=== PATIENT | female | born 1980 | race Caucasian/White ===

== ENCOUNTER 2018-06-28 09:13 | Outpatient (CLI) | payer MEDICAID, SELFPAY ==
[2018-06-28 13:00] LABS: Anion Gap 9.6 mmol/L (3-11); CO2 26.4 mmol/L (21.0-32.0); Chloride 105 mmol/L (98-107); Potassium 3.7 mmol/L (3.5-5.1); Sodium 141 mmol/L (136-145)
[2018-06-28 13:03] LABS: Hemoglobin A1C 5.9 % (4.5-6.2)
== END 2018-06-28 09:14 ==
PROVIDERS: PCP Family Medicine; Visit Provider Family Medicine
DX: I10 Essential (primary) hypertension (principal); E11.9 Type 2 diabetes mellitus without complications
CPT/HCPCS: 36415; 80051; 83036

== ENCOUNTER 2019-03-09 08:37 | Outpatient (CLI) | payer MEDICAID, SELFPAY ==
[2019-03-09 11:15] LABS: Hemoglobin A1C 6.2 % (4.5-6.2)
[2019-03-10 13:27] LABS: Measles IgG Antibody Negative
== END 2019-03-09 08:57 ==
PROVIDERS: PCP Family Medicine; Visit Provider Family Medicine
DX: E11.9 Type 2 diabetes mellitus without complications (principal); Z20.828 Contact with and (suspected) exposure to other viral communicable diseases
CPT/HCPCS: 36415; 83036; 86765

== ENCOUNTER 2019-03-09 08:56 | Outpatient (REF) | payer MEDICAID, SELFPAY | END 2019-03-09 09:16 | LOC: LBN 08:56 | PROVIDERS: PCP Family Medicine; Visit Provider Family Medicine | DX: S81.802A Unspecified open wound, left lower leg, initial encounter (principal); E11.9 Type 2 diabetes mellitus without complications; Z20.828 Contact with and (suspected) exposure to other viral communicable diseases | CPT/HCPCS: 36415; 83036; 86765; 87070; 87205 ==

== ENCOUNTER 2019-03-26 07:37 | Emergency (ER) | payer MEDICAID, SELFPAY ==
[2019-03-26 07:41] VITALS: BP 144/87; PULSE 116; RESP 26; TEMP 37.3; O2SAT 99
--- NOTE | 2019-03-26 08:19 | DI.CT_ITS ---
SYMPTOMS/DIAGNOSIS: ANTERIOR THROAT PAIN, WORSE ON RIGHT; ALTERED VOICE CT OF THE NECK: A post contrast exam was performed. The visualized portions of the lung apices appear clear. The thyroid, parotid and submandibular glands appear normal. The epiglottis is not enlarged. There is enlargement of the adenoids, as well as lingual and palatine tonsils. No abscess is identified. There is no prevertebral soft tissue swelling. There does appear to be some narrowing of the oropharynx secondary to the adenoid swelling. The spine is unremarkable. IMPRESSION: Tonsillitis and adenoiditis with narrowing of the oropharynx. No drainable abscess.
--- NOTE | 2019-03-26 08:26 | ED.GENADUL_ITS ---
Discharge Plan Disposition Patient Disposition: HOME Condition: Stable Discharge Details Chief Complaint: Sorethroat Clinical Impression: Sore throat, Generalized body aches Primary Care Provider: Isidro Weinstein ED Provider: Kiersten Haynes Home Meds and New Rx's Prescriptions: Continued albuterol sulfate [ProAir HFA] 90 mcg/actuation HFA aerosol inhaler 1 puff Inhalation Q4H PRN Qty: 1 RF: 3 dextroamphetamine-amphetamine [Adderall XR] 20 mg capsule,extended release 24hr 20 mg PO DAILY MDD 20 mg Qty: 30 RF: 0 loratadine 10 mg tablet 10 mg PO DAILY PRN (Reason: allergy symptoms) Qty: 90 RF: 3 PNV cmb#95-ferrous fumarate-FA [] 1 EACH tablet 1 ea PO DAILY RF: 0 wedge pillow 1 misc UD DAILY Qty: 1 RF: 0 levothyroxine 100 MCG tablet 100 mcg PO DAILY Qty: 90 RF: 4 metformin 500 mg tablet 500 mg PO BID Qty: 180 RF: 3 Discharge Instructions Instructions: Pharyngitis (ED) Additional Instructions: Please return immediately to the emergency department if you develop any new or worsening symptoms or if you become otherwise concerned. It is extremely important that you make an appointment to be seen in follow-up for this visit as soon as possible by your primary care doctor. Referrals: Isidro Weinstein [Primary Care Provider] - Medical Decision Making Jaki Cardoso is a 38 y/o woman with history of obesity, borderline diabetes, asthma who presented to the emergency department with sore throat, painful swallowing, change in voice since yesterday. On exam patient is nontoxic appearing. She has a hoarse voice. Exam of the oropharynx is normal, no tonsillar or posterior pharynx erythema, no tonsillar edema. Difficult examination of the neck secondary to body habitus, right anterior neck tender to palpation. No tongue elevation. Handling secretions without issue. Rapid strep negative per nursing. Concern for bacterial vs viral pharyngitis, possible abscess given difficulty swallowing liquids change in voice, possible metabolic/lyte derangement. Exam/history is not consistent with sepsis, meningitis. Plan for CT neck, screening labs, IV fluid hydration. Will monitor and reassess. CT neck shows enlarged adenoids, no abscess, no epiglottitis per radiology preliminary read. Patient reports symptoms improved. Has been drinking fluids without issue. Heart rate now 100 upon reassessment. I had a lengthy discussion with the patient and her regarding return to emergency department precautions, importance of outpatient follow-up with her PCP, and home care. Patient verbalized understanding of the plan and was amenable. Patient was discharged to home with clear plan for outpatient follow-up. All questions were answered. Medical Records Medical records reviewed: Yes I reviewed the patient's medical records. Lab Data Lab results reviewed: Yes I reviewed the patient's lab results. 03/26/19 07:53 Pharynx Streptococcus Screen ([facility]) - Pending Laboratory Tests Range/Units 03/26/19 03/26/19 03/26/19 08:35 08:35 09:45 WBC (4.4-10.8) k/cumm 13.81 H RBC (4.00-5.20) m/cumm 4.44 Hgb (12.0-15.5) g/dL 11.4 L Hct (36.0-46.0) % 36.3 MCV (80-95) fL 81.8 MCH (27.0-33.0) pg 25.7 L MCHC (32.0-36.0) g/dL 31.4 L RDW (11.7-14.6) % 15.1 H Plt Count (130-400) x1000/uL 302 MPV (8.0-11.0) fL 9.9 Immature Gran % 0.4 Neutrophils % 82.9 Lymphocytes % 10.1 Monocytes % 5.7 Eosinophils % 0.8 Basophils % 0.1 Absolute Neutrophils (1.2-6.7) k/cumm 11.45 H Absolute Lymphocytes (1.2-3.4) k/cumm 1.39 Absolute Monocytes (0.11-0.7) k/cumm 0.79 H Absolute Eosinophils (0.0-0.7) k/cumm 0.11 Absolute Basophils (0.0-0.2) k/cumm 0.01 Sodium (136-145) mmol/L 134 L Potassium (3.5-5.1) mmol/L 4.1 Chloride (98-107) mmol/L 97 L Carbon Dioxide (21.0-32.0) mmol/L 27.8 Anion Gap (3-11) mmol/L 9.2 BUN (7-18) mg/dL 10 Creatinine (0.55-1.02) mg/dL 0.68 Estimated GFR/1.73 m2 (mL/min/1.73m2) >= 60.00 Glucose (70-100) mg/dL 127 H Calcium (8.5-10.1) mg/dL 8.8 Urine Color (Yellow) Yellow Urine Clarity Clear Urine pH (5-8) 5.5 Ur Specific [place] (1.005-1.025) 1.020 Urine Protein (Negative) mg/dL Negative Urine Ketones (Negative) mg/dL Negative Urine Blood (Negative) Negative Urine Nitrite (Negative) Negative Urine Bilirubin (Negative) Negative Urine Urobilinogen (Up TO 0.2) EU/dL 0.2 Ur Leukocyte Esterase (Negative) Trace H Urine RBC (0-2) Negative Urine WBC (0-5) HPF 0-2 Ur Epithelial Cells (Negative) HPF Negative Urine Crystals (Negative) HPF Negative Urine Bacteria (Negative) HPF Negative Urine Casts (Negative) LPF Negative Urine Mucus (Negative) Negative Urine Other (Negative) Negative Ur Culture Indicated? No Urine Glucose (Negative) mg/dL Negative HPI General Mode of arrival: ambulatory . Date/Time Provider Initiated Documentation: 03/26/19 08:01 . Limitations to Documentation: no limitations . Information obtained by: patient, family, RN notes reviewed and old records reviewed . HPI Narrative: Jaki Cardoso is a 38 y/o woman with history of obesity, diabetes in the past on metformin though currently on no medications, asthma presenting to the emergency department with sore throat. Patient reports that yesterday she noticed that the front right side of her throat is painful. She felt that she had fevers throughout the night with unusual episodes of sweating, and also noticed generalized body aches throughout. Patient reports that she has had very little to drink since onset of throat pain yesterday, and has had nothing to eat because of the pain. She notes that her voice has changed since onset of throat pain. Patient also reports headache and area of her frontal sinuses bilaterally (no sudden onset, not the worst headache of her life) and nausea. She denies any other pain, denies vomiting, diarrhea, dysuria, shortness of breath, cough. Was previously in her usual state of health. Patient reports that she has not taken any medication at home for her symptoms. Related Data Home Medications Medication Instructions Recorded Confirmed PNV cmb#95-ferrous fumarate-FA 1 ea PO DAILY 03/05/15 03/09/19 [] levothyroxine 100 mcg PO DAILY #90 tab-cap 05/17/18 03/26/19 albuterol sulfate HFA 90 1 puff INHALATION Q4H PRN #1 09/05/18 03/26/19 mcg/actuation aerosol inhaler inhaler metformin 500 mg tablet 500 mg PO BID #180 tab-cap 12/12/18 03/26/19 dextroamphetamine-amphetamine ER 20 mg PO DAILY #30 cap MDD 20 mg 03/09/19 03/26/19 20 mg 24hr capsule,extend release loratadine 10 mg tablet 10 mg PO DAILY PRN #90 tab-cap 03/09/19 03/26/19 Previous Rx's Medication Instructions Recorded levothyroxine 100 mcg PO DAILY #90 tab-cap 05/17/18 albuterol sulfate HFA 90 1 puff INHALATION Q4H PRN #1 09/05/18 mcg/actuation aerosol inhaler inhaler metformin 500 mg tablet 500 mg PO BID #180 tab-cap 12/12/18 dextroamphetamine-amphetamine ER 20 mg PO DAILY #30 cap MDD 20 mg 03/09/19 20 mg 24hr capsule,extend release loratadine 10 mg tablet 10 mg PO DAILY PRN #90 tab-cap 03/09/19 Allergies Allergy/AdvReac Type Severity Reaction Status Date / Time coconut Allergy Severe THROAT Unverified 03/09/19 08:02 CLOSES latex Allergy Intermediate Skin Rash Unverified 03/09/19 08:02 General Stated Complaint: Sorethroat MARRY: 4 Review of Systems Review of Systems Constitutional: Reports subjective fevers Eyes: denies eye pain ENT: denies facial pain, dental pain, reports sore throat, pain and difficulty swallowing, voice change Cardiovascular: denies chest pain Respiratory: denies SOB, cough GI: denies abdominal pain, vomiting, diarrhea : denies flank pain MSK: denies back pain, neck pain, arthralgias, reports generalized myalgias Skin: denies rash Neuro: Reports mild headaches in frontal sinus area, denies weakness PFS Medical History Allergic asthma Morbid obesity Family History Father Diabetes Mental disorder Neoplasm Mother Diabetes Mental disorder Brother Mental disorder Brother Mental disorder Grandfather Dementia Heart disease Grandfather Neoplasm Grandmother Heart disease Grandmother CHF (congestive heart failure) Asthma Daughter No problems noted. nephew Mental disorder Social History Smoking/Tobacco Use Status: Never Alcohol Intake: never Drug use: Never Substance use type: does not use Household members: other Details: 3 Pets and animals: Yes Pets and animals: cat(s) What type of physical activity do you participate in: none Mariam/Evangelical: [employer] mariam needs: No Seatbelt use: always Do you feel safe at home: Yes Do you feel safe in your relationship?: Yes Exam Narrative Exam Narrative: Constitutional: well and [id number], pleasant, conversing normally but with hoarse voice HENT: head atraumatic/normocephalic/normal inspection, mucous membranes moist, normal posterior pharynx without edema or erythema, uvula midline, no tongue elevation Eyes: conjunctiva normal, sclera normal, pupils 3mm b/l Neck: no stridor, normal painless ROM, supple, trachea midline, exam somewhat limited secondary to body habitus, tender anterior right neck Chest: normal inspection Resp: normal work of breathing, LCTAB Cardio: normal rate, normal rhythm, no murmur appreciated Back: normal inspection, no rash Skin: warm, dry, normal color, no rash Neuro: alert, not altered, grossly non-focal, normal tone, normal gait Ext: no edema Psych: normal mood, normal affect, normal behavior Course Vital Signs Temperature 37.3 C 03/26/19 07:41 Pulse 116 H 03/26/19 07:41 Respiratory Rate 26 H 03/26/19 07:41 Blood Pressure 144/87 H 03/26/19 07:41 Pulse Oximetry 99 03/26/19 07:41 Temperature 37.3 C 03/26/19 07:41 Temperature Source Tympanic 03/26/19 07:41 Pulse 116 H 03/26/19 07:41 Respiratory Rate 26 H 03/26/19 07:41 Blood Pressure 144/87 H 03/26/19 07:41 Pulse Oximetry 99 03/26/19 07:41 Oxygen Delivery Method Room Air 03/26/19 07:41 Oxygen Flow Rate 0 03/26/19 07:41 Pain Level 9 03/26/19 07:41 Lab/Test Results Lab/Test Results: 03/26/19 08:00 Pharynx Streptococcus Screen ([facility]) - Pending
[2019-03-26] MEDS: Ibuprofen 600 MG TAB PO (08:29)
[2019-03-26] MEDS: Normal Saline 1,000 ML 1000 ML IV (08:39)
[2019-03-26 08:50] LABS: Abs Immature Grans 0.06 k/cumm (0.0-0.09); Absolute Eosinophil Count 0.11 k/cumm (0.0-0.7); Absolute Lymphocyte Count 1.39 k/cumm (1.2-3.4); Absolute Monocyte Count 0.79 k/cumm (0.11-0.7); Basophils % 0.1; Eosinophils % 0.8; HCT 36.3 % (36.0-46.0); HGB 11.4 g/dL (12.0-15.5); Immature Grans % 0.4; Lymphocytes % 10.1; Mean Corp. HGB Concentration 31.4 g/dL (32.0-36.0); Mean Corpuscular Hemoglobin 25.7 pg (27.0-33.0); Mean Corpuscular Volume 81.8 fL (80-95); Mean Platelet Volume 9.9 fL (8.0-11.0); Monocytes % 5.7; Neutrophils % 82.9; Platelet Count 302 x1000/uL (130-400); RBC 4.44 m/cumm (4.00-5.20); RBC Distribution Width 15.1 % (11.7-14.6); White Blood Cell Count 13.81 k/cumm (4.4-10.8)
[2019-03-26 08:51] LABS: Absolute Basophil Count 0.01 k/cumm (0.0-0.2); Absolute Neutrophil Count 11.45 k/cumm (1.2-6.7)
[2019-03-26 08:54] LABS: Anion Gap 9.2 mmol/L (3-11); BUN 10 mg/dL (7-18); CO2 27.8 mmol/L (21.0-32.0); CREATININE 0.68 mg/dL (0.55-1.02); Calcium 8.8 mg/dL (8.5-10.1); Chloride 97 mmol/L (98-107); Glucose 127 mg/dL (70-100); Potassium 4.1 mmol/L (3.5-5.1); Sodium 134 mmol/L (136-145)
[2019-03-26] MEDS: Omnipaque 350 MG/ML 100 ML BTL IJ (10:21)
[2019-03-26 10:43] LABS: Bilirubin Negative (Negative); Blood Negative (Negative); Clarity Clear; Glucose Negative (Negative); Ketones Negative (Negative); Leukocyte Esterase Trace (Negative); Nitrite Negative (Negative); Urobilinogen 0.2 EU/dL (Up TO 0.2); pH 5.5 (5-8)
[2019-03-26 10:53] LABS: Bacteria Negative HPF (Negative); C & S Indicated? No; Casts Negative LPF (Negative); Crystals Negative HPF (Negative); Epithelial Cells Negative HPF (Negative); Mucus Negative (Negative); Other Cells Negative (Negative); RBC Negative (0-2); WBC 0-2 HPF (0-5)
[2019-03-26 12:00] VITALS: PULSE 102; RESP 18; TEMP 37; O2SAT 98
--- NOTE | 2019-03-27 17:33 | DI.VRAD_ITS ---
EXAM: CT Neck With Contrast EXAM DATE/TIME: 03/26/2019 10:18 AM CLINICAL HISTORY: 38 years old, female; Throat pain TECHNIQUE: Imaging protocol: Axial computed tomography images of the neck with intravenous contrast. Coronal and sagittal reformatted images were created and reviewed. Contrast material: [id number]; Contrast volume: 100 ml; Contrast route: IV; COMPARISON: No relevant prior studies available. FINDINGS: Sinuses: Mild mucoperiosteal thickening noted in the sphenoid sinus. Nasopharynx: The adenoidal tissues are prominent. Oropharynx: The tonsillar tissues are prominent for age. There is lymphoid hyperplasia present at the tongue base. The oropharynx is compromised secondary to tonsillar and adenoidal enlargement. Hypopharynx: Normal. Larynx: Normal. Normal epiglottis. Retropharyngeal space: Normal. Submandibular/Parotid glands: Normal. Glands are normal in size. Thyroid: Normal. No enlarged or calcified nodules. Lymph nodes: There is mild bilateral carotid space adenopathy. Trachea: Visualized trachea is unremarkable. Lungs: Soft tissue nodule right upper lobe 3 mm series 3 image 1. Vasculature: No acute findings. Bones/joints: Normal. No acute fracture. Soft tissues: Normal. No significant soft tissue swelling. IMPRESSION: Tonsillitis and adenoiditis. There is associated airway compromise of the oropharynx. COMMENT: Preliminary interpretation is based on receipt of 753 image(s). A final report will be issued subsequently. Dictated and Authenticated by: Caitlyn Maher MD. Ordering:SABINE Burch MD
== END 2019-03-26 12:25 | disposition home or self-care (01) ==
PROVIDERS: Emergency Provider Student in an Organized Health Care Education/Training Program; PCP Family Medicine
DX: J02.0 Streptococcal pharyngitis (principal); M79.10 Myalgia, unspecified site; R49.0 Dysphonia; E11.9 Type 2 diabetes mellitus without complications; J35.2 Hypertrophy of adenoids; E66.01 Morbid (severe) obesity due to excess calories; Z68.44 Body mass index [BMI] 60.0-69.9, adult
CPT/HCPCS: 36415; 70491; 80048; 81025; 87880; 96360; 99285; 81003; 81015; 85025; 87081; 99284; J3490

== ENCOUNTER 2019-05-21 13:05 | Emergency (ER) | payer MEDICAID, SELFPAY ==
[2019-05-21] VITALS (11 sets, daily range): BP systolic 124–143; BP diastolic 73–88; PULSE 83–102; RESP 16–29; TEMP 36.7; O2SAT 97–100
[2019-05-21] MEDS: Ketorolac 15 MG/ML VIAL IVP (13:21)
--- NOTE | 2019-05-21 13:21 | DI.CT_ITS ---
SYMPTOM/DIAGNOSIS: EPIGASTRIC AND RUQ PAIN, STERNAL PAIN CHEST, ABDOMEN AND PELVIC CT: CT scan of the chest, abdomen and pelvis was performed following the uneventful administration of intravenous contrast material. There are no priors for comparison. ABDOMEN AND PELVIS: The liver is enlarged measuring 25 cm. in length. There does appear to be diffuse decreased attenuation of the liver suggesting hepatic steatosis. No evidence of a hepatic mass is seen. The portal, superior mesenteric and splenic veins are patent. There are stones seen in the region of the neck of the gallbladder. There is no biliary ductal dilatation. There does appear to be mild increased infiltration around the gallbladder. The pancreas is unremarkable as are the spleen and adrenal glands. The kidneys show normal and symmetric enhancement. No evidence of a solid renal mass or obstruction. The urinary bladder is intact. The reproductive organs are unremarkable. The abdominal aorta is of normal caliber. No significant abdominal or pelvic adenopathy, ascites or pneumoperitoneum is present. The bowel shows no evidence of obstruction or inflammation. No findings to suggest an acute appendicitis are present. Mild degenerative changes are seen in the spine. IMPRESSION: Cholelithiasis with mild increased infiltration in the surrounding fat. Acute cholecystitis cannot be excluded. Ultrasound should be considered for further evaluation. CHEST: The thoracic aorta is of normal caliber. Incidental note is made of an aberrant right subclavian artery. Heart size is within normal limits. No significant pericardial effusion is sasha. No significant thoracic adenopathy is appreciated. There is soft tissue in the anterior mediastinum likely reflecting residual thymic tissue. No pleural effusion or pneumothorax is identified. No focal consolidating infiltrates are seen. The tracheobronchial tree is unremarkable. Moderate degenerative changes are seen in the spine. There is a bone island seen in the T 3 vertebral body. IMPRESSION: No acute pulmonary process.
--- NOTE | 2019-05-21 13:24 | ED.GENADUL_ITS ---
Discharge Plan Disposition Patient Disposition: HOME Condition: Good Discharge Details Chief Complaint: Abd Prob Clinical Impression: Acid reflux, Acute epigastric pain, Biliary colic Primary Care Provider: Isidro Weinstein ED Provider: Ridge Choudhary Home Meds and New Rx's Prescriptions: New omeprazole 40 mg capsule,delayed release(DR/EC) 40 mg PO DAILY Qty: 30 RF: 0 No Action albuterol sulfate [ProAir HFA] 90 mcg/actuation HFA aerosol inhaler 1 puff Inhalation Q4H PRN Qty: 1 RF: 3 loratadine 10 mg tablet 10 mg PO DAILY PRN (Reason: allergy symptoms) Qty: 90 RF: 3 penicillin V potassium 500 mg tablet 500 mg PO BID RF: 0 PNV cmb#95-ferrous fumarate-FA [] 1 EACH tablet 1 ea PO DAILY RF: 0 wedge pillow 1 misc UD DAILY Qty: 1 RF: 0 levothyroxine 100 MCG tablet 100 mcg PO DAILY Qty: 90 RF: 4 metformin 500 mg tablet 500 mg PO BID Qty: 180 RF: 3 dextroamphetamine-amphetamine [Adderall XR] 20 mg capsule,extended release 24hr 20 mg PO DAILY MDD 20 mg Qty: 30 RF: 0 Discharge Instructions Instructions: Biliary Colic (ED), Gastroesophageal Reflux Disease (ED) Additional Instructions: Your gallbladder does have some gallstones, and shows some signs of irritation, however upon review with the surgeon it is felt that no immediate surgery is indicated currently. I feel that your symptoms are most likely reflux related, however there is certainly a mild gallbladder component. Please avoid any spicy foods, greasy foods, tomato-based foods, or citrus foods. Avoid any dairy. Please take the medication as directed. Please follow-up immediately with the surgeon. Please contact their office tomorrow morning for this appointment. If you notice any worsening of your symptoms, or any new symptoms such as vomiting, diarrhea, fever, chills, shortness of breath, chest pain, numbness, weakness, or fainting , please return immediately to the emergency department for reevaluation. Please follow up with your primary care provider as soon as possible for reassessment and reevaluation. As always, it was a pleasure participating in your medical care today. Referrals: Elsy Bender MD [ [facility] STAFF PHYSICIAN] - Medical Decision Making This is a pleasant 58-year-old female with a past medical history of morbid obesity, obstructive sleep apnea, diabetes, who presents today for evaluation of epigastric pain. She states that this morning when she woke up she had epigastric pain, not worsened by the steak eggs and cheese that she ate. It radiates to the sternum but also in the upper abdomen. Notably reproducible on palpation of the epigastric region. She denies any recent alcohol intake. She does have nausea, but denies any vomiting. Exam demonstrates no other significant abnormalities. Differential includes pancreatitis, gallbladder etiology, or less likely pulmonary etiology. Cardiac work-up will be performed secondary to the patient's obesity diabetes. We will rehydrate, treat her pain reassess. 4:55 PM After Toradol and GI cocktail the patient has near complete resolution of her symptoms. She still does describe a mild achiness in the epigastric region, but no other significant pain. She is tolerating p.o. very well. Laboratory results demonstrate no white count, stable hemoglobin, no bandemia or severe left shift. Electrolytes are normal, renal function normal, EKG, and troponin are benign lipase is normal. CT scan results per virtual radiology have returned and demonstrate evidence of a mildly distended gallbladder, gallstones, very mild pericholecystic fluid. Repeat abdominal exam demonstrates no evidence of a Flowers sign, and a nonsurgical abdomen. With no evidence of white count, notable tolerance to p.o., and near complete resolution of her symptoms or GI cocktail I feel that severe acute cholecystitis is less likely. We did contact surgery, Dr. Bender discussed the case with her. Images were reviewed, patient clinical condition was reviewed, and labs were reviewed. At this time it is felt that since that her pain is resolved, she is tolerating p.o. well, has no white count or fever, demonstrates a nonsurgical abdomen at this time that no immediate surgery is indicated. Dr. Bender would like to see the patient on an outpatient basis this week. Discussed this with the patient, we will start her on omeprazole for PPI inhibition. Recommended dietary precautions, the importance of close prompt follow-up. At this time I feel that the patient's symptoms are clinically consistent with reflux and mild gastritis, and not acute cholecystitis clinically requiring emergent surgery.. I have extensively reviewed the treatment plan and discharge instructions with the patient and their family. I have addressed all patient concerns at this time. The patient and family was made aware of what symptoms to monitor for that would warrant a return to the emergency department. Discussed the plan with the patient and family, they demonstrate verbal understanding and agreement with our assessment and plan at this time. EKG 13: 14 Rate 83, intervals normal, sinus rhythm, no significant ST elevations or depressions, there is an inverted T wave in lead III. No other acute changes. No previous EKG for comparison. EXAM: CT Chest With Contrast EXAM DATE/TIME: 05/21/2019 1:23 PM CLINICAL HISTORY: 38 years old, female; Abdominal pain; Localized; Right upper quadrant (ruq); Sternal or substernal pain; Patient HX: Epigastric pain, ruq pain, sternal pain TECHNIQUE: Imaging protocol: Axial computed tomography images of the chest with intravenous contrast. Coronal and sagittal reformatted images were created and reviewed. COMPARISON: US PELVIS TRANSVAG 07/15/2017 3:32 PM FINDINGS: Lungs: Unremarkable. No consolidation. No masses. Pleural space: Unremarkable. No pneumothorax. No pleural effusion. Heart: Unremarkable. No cardiomegaly. No pericardial effusion. Aorta: Unremarkable. No aortic aneurysm. Lymph nodes: Unremarkable. No enlarged lymph nodes. Bones/joints: Unremarkable. No acute fracture. Soft tissues: Unremarkable. IMPRESSION: No acute findings. EXAM: CT Abdomen and Pelvis With Contrast EXAM DATE/TIME: 05/21/2019 1:23 PM CLINICAL HISTORY: 38 years old, female; Abdominal pain; Localized; Right upper quadrant (ruq); Sternal or substernal pain; Patient HX: Epigastric pain, ruq pain, sternal pain TECHNIQUE: Imaging protocol: Axial computed tomography images of the abdomen and pelvis with intravenous contrast. Coronal and sagittal reformatted images were created and reviewed. COMPARISON: US PELVIS TRANSVAG 07/15/2017 3:32 PM FINDINGS: Liver: Hepatomegaly 25 cm Gallbladder and bile ducts: Multiple gallstones in the distended gallbladder. There may be mild pericholecystic inflammatory changes. Pancreas: Normal. No ductal dilation. Spleen: Normal. No splenomegaly. Adrenals: Normal. No mass. Kidneys and ureters: Normal. No hydronephrosis. Stomach and bowel: Normal. No obstruction. No mucosal thickening. Appendix: No evidence of appendicitis. Intraperitoneal space: Normal. No free air. No significant fluid collection. Vasculature: Normal. No abdominal aortic aneurysm. Lymph nodes: Normal. No enlarged lymph nodes. Bladder: Unremarkable as visualized. Reproductive: Unremarkable as visualized. Bones/joints: No acute fracture. No dislocation. Soft tissues: Unremarkable. IMPRESSION: Multiple gallstones in the distended gallbladder. There may be mild pericholecystic inflammatory changes. Recommend further evaluation for acute cholecystitis Dictated and Authenticated by: Randi Chacon MD. Ordering:YULIYA Sabillon MD [facility] General Date/Time Provider Initiated Documentation: 05/21/19 13:08 . HPI Narrative: This is a 38-year-old female with a past medical history of obesity, uterine fibroids, diabetes, obstructive sleep apnea, who presents today for evaluation of epigastric pain. Patient states that this morning she woke up with this epigastric pain. She describes it as aching in nature. She has eaten steak, eggs, and cheese since then and this is not changed her pain. She has been constipated as of late but denies any acute change of bowel movements as of late. She denies any significant pleuritic chest pain. There is questionable radiation to her sternum, but she states that the majority is in the epigastric region. It is slightly worse when lying flat, but not improved by sitting upright. She denies any arm neck or shoulder pain. She denies any chest heaviness or tightness. She denies any previous cardiac history or family history of early cardiac disease. Denies PE risk factors such as recent long car rides, immobilization, recent surgery, prior history of DVT or PE, family history of PE or DVT, exogenous estrogen and smoking, hemoptysis, history of cancer. Related Data Home Medications Medication Instructions Recorded Confirmed PNV cmb#95-ferrous fumarate-FA 1 ea PO DAILY 03/05/15 03/29/19 [] levothyroxine 100 mcg PO DAILY #90 tab-cap 05/17/18 03/29/19 albuterol sulfate 90 mcg/actuation 1 puff INHALATION Q4H PRN #1 09/05/18 03/29/19 aerosol inhaler inhaler metformin 500 mg tablet 500 mg PO BID #180 tab-cap 02/05/19 05/23/19 loratadine 10 mg tablet 10 mg PO DAILY PRN #90 tab-cap 03/09/19 03/29/19 penicillin V potassium 500 mg 500 mg PO BID 03/29/19 03/29/19 tablet dextroamphetamine-amphetamine ER 20 mg PO DAILY #30 cap MDD 20 mg 05/11/19 20 mg 24hr capsule,extend release omeprazole 40 mg PO DAILY #30 cap 05/21/19 Previous Rx's Medication Instructions Recorded levothyroxine 100 mcg PO DAILY #90 tab-cap 05/17/18 albuterol sulfate 90 mcg/actuation 1 puff INHALATION Q4H PRN #1 09/05/18 aerosol inhaler inhaler metformin 500 mg tablet 500 mg PO BID #180 tab-cap 12/12/18 loratadine 10 mg tablet 10 mg PO DAILY PRN #90 tab-cap 03/09/19 dextroamphetamine-amphetamine ER 20 mg PO DAILY #30 cap MDD 20 mg 05/11/19 20 mg 24hr capsule,extend release omeprazole 40 mg PO DAILY #30 cap 05/21/19 Allergies Allergy/AdvReac Type Severity Reaction Status Date / Time coconut Allergy Severe THROAT Verified 03/29/19 11:45 CLOSES latex Allergy Intermediate Skin Rash Verified 03/29/19 11:45 General Stated Complaint: Abd Prob MARRY: 3 Review of Systems Review of Systems All systems reviewed & are unremarkable except as noted in HPI and below PFSH Family History Father Diabetes Mental disorder Neoplasm Mother Diabetes Mental disorder Brother Mental disorder Brother Mental disorder Grandfather Dementia Heart disease Grandfather Neoplasm Grandmother Heart disease Grandmother CHF (congestive heart failure) Asthma Daughter No problems noted. nephew Mental disorder Social History Smoking/Tobacco Use Status: Never Alcohol Intake: never Drug use: Never Substance use type: does not use Household members: other Details: 3 Pets and animals: Yes Pets and animals: cat(s) What type of physical activity do you participate in: none Mariam/Spiritism: Jewish Special mariam needs: No Seatbelt use: always Do you feel safe at home: Yes Do you feel safe in your relationship?: Yes Exam Narrative Exam Narrative: 1.Const: Well-nourished, Well-developed, appearing stated age 2.Eyes: PERRL, no conjunctival injection, and symmetrical lids. 3.ENT: Atraumatic external nose and ears. Moist MM. Neck: Symmetric, trachea midline, No thyromegaly. 4.CVS: +S1/S2, No murmurs or gallops. Peripheral pulses 2+ and equal in all extremities. Brisk capillary refill in all extremities. 5.RESP: Unlabored respiratory effort. Clear to auscultation bilaterally. No wheezes rales or rhonchi 6.GI: Soft,Nondistended, No hepatosplenomegaly. No guarding or rebound. Notable reproducible epigastric pain. No pain in the lower abdomen or pain at McBurney's point. Pain is present in the right upper quadrant. 7.MSK: Normocephalic/Atraumatic, Extremities w/o deformity or ttp No cyanosis or clubbing, Normal movement of all extremities. No calf tenderness. 8.Skin: Warm, Dry. No rashes or lesions. 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 Sensation grossly intact, no focal neurologic deficits. 10.Psych: (AAO) x3. Appropriate mood and affect Course Vital Signs Temperature 36.7 C 05/21/19 13:10 Pulse 83 05/21/19 13:10 Respiratory Rate 20 05/21/19 13:10 Blood Pressure 143/88 H 05/21/19 13:10 Pulse Oximetry 99 05/21/19 13:10 Temperature 36.7 C 05/21/19 13:10 Temperature Source Skin 05/21/19 13:10 Pulse 83 05/21/19 13:10 Respiratory Rate 20 05/21/19 13:10 Blood Pressure 143/88 H 05/21/19 13:10 Blood Pressure Position Supine 05/21/19 13:10 Pulse Oximetry 99 05/21/19 13:10 Oxygen Delivery Method Room Air 05/21/19 13:10 Oxygen Flow Rate 0 05/21/19 13:10
[2019-05-21 14:09] LABS: Abs Immature Grans 0.07 k/cumm (0.0-0.09); Absolute Basophil Count 0.02 k/cumm (0.0-0.2); Absolute Eosinophil Count 0.21 k/cumm (0.0-0.7); Absolute Lymphocyte Count 1.91 k/cumm (1.2-3.4); Absolute Monocyte Count 0.59 k/cumm (0.11-0.7); Absolute Neutrophil Count 7.98 k/cumm (1.2-6.7); Basophils % 0.2; Eosinophils % 1.9; HCT 36.6 % (36.0-46.0); HGB 11.4 g/dL (12.0-15.5); Immature Grans % 0.6; Lymphocytes % 17.7; Mean Corp. HGB Concentration 31.1 g/dL (32.0-36.0); Mean Corpuscular Hemoglobin 25.8 pg (27.0-33.0); Mean Corpuscular Volume 82.8 fL (80-95); Mean Platelet Volume 10.1 fL (8.0-11.0); Monocytes % 5.5; Neutrophils % 74.1; Platelet Count 341 x1000/uL (130-400); RBC 4.42 m/cumm (4.00-5.20); RBC Distribution Width 15.5 % (11.7-14.6); White Blood Cell Count 10.78 k/cumm (4.4-10.8)
[2019-05-21] MEDS: Ondansetron 4 MG/2 ML VIAL IVP (14:11)
[2019-05-21] MEDS: Normal Saline 1,000 ML 1000 ML IV (14:11)
[2019-05-21 14:27] LABS: PTT Activated 22.3 sec (21.0-31.4); Prothrombin Time 10.1 sec (9.3-11.0)
[2019-05-21 14:44] LABS: ALT 34 U/L (12-78); AST 14 U/L (15-37); Albumin 3.3 g/dL (3.4-5.0); Alkaline Phosphatase 87 U/L (46-116); Anion Gap 7.1 mmol/L (3-11); BUN 13 mg/dL (7-18); Bilirubin, Total 0.3 mg/dL (0.2-1.0); CO2 29.9 mmol/L (21.0-32.0); CREATININE 0.71 mg/dL (0.55-1.02); Calcium 9.4 mg/dL (8.5-10.1); Chloride 101 mmol/L (98-107); Glucose 149 mg/dL (70-100); Lipase 123 U/L (73-393); Potassium 4.9 mmol/L (3.5-5.1); Sodium 138 mmol/L (136-145); Total Protein 8.1 g/dL (6.4-8.2)
--- NOTE | 2019-05-21 14:44 | NUR.NOTE ---
Good results from pain med. pt now 02/14 pain intermittentNursing Note:
[2019-05-21 14:45] LABS: Troponin I < 0.05 ng/mL (0.00-0.06)
[2019-05-21] MEDS: Omnipaque 350 MG/ML 100 ML BTL IJ (16:17)
--- NOTE | 2019-05-21 16:34 | DI.VRAD_ITS ---
Addendum created by Randi Chacon MD on 05/21/2019 4:36:52 PM EDT THIS REPORT CONTAINS FINDINGS THAT MAY BE CRITICAL TO PATIENT CARE. The findings were verbally communicated via telephone conference with BYRON JERNIGAN at 4:36 PM EDT on 05/21/2019. The findings were acknowledged and understood. Initial report created on 05/21/2019 4:34:25 PM EDT EXAM: CT Chest With Contrast EXAM DATE/TIME: 05/21/2019 1:23 PM CLINICAL HISTORY: 38 years old, female; Abdominal pain; Localized; Right upper quadrant (ruq); Sternal or substernal pain; Patient HX: Epigastric pain, ruq pain, sternal pain TECHNIQUE: Imaging protocol: Axial computed tomography images of the chest with intravenous contrast. Coronal and sagittal reformatted images were created and reviewed. COMPARISON: US PELVIS TRANSVAG 07/15/2017 3:32 PM FINDINGS: Lungs: Unremarkable. No consolidation. No masses. Pleural space: Unremarkable. No pneumothorax. No pleural effusion. Heart: Unremarkable. No cardiomegaly. No pericardial effusion. Aorta: Unremarkable. No aortic aneurysm. Lymph nodes: Unremarkable. No enlarged lymph nodes. Bones/joints: Unremarkable. No acute fracture. Soft tissues: Unremarkable. IMPRESSION: No acute findings. EXAM: CT Abdomen and Pelvis With Contrast EXAM DATE/TIME: 05/21/2019 1:23 PM CLINICAL HISTORY: 38 years old, female; Abdominal pain; Localized; Right upper quadrant (ruq); Sternal or substernal pain; Patient HX: Epigastric pain, ruq pain, sternal pain TECHNIQUE: Imaging protocol: Axial computed tomography images of the abdomen and pelvis with intravenous contrast. Coronal and sagittal reformatted images were created and reviewed. COMPARISON: US PELVIS TRANSVAG 07/15/2017 3:32 PM FINDINGS: Liver: Hepatomegaly 25 cm Gallbladder and bile ducts: Multiple gallstones in the distended gallbladder. There may be mild pericholecystic inflammatory changes. Pancreas: Normal. No ductal dilation. Spleen: Normal. No splenomegaly. Adrenals: Normal. No mass. Kidneys and ureters: Normal. No hydronephrosis. Stomach and bowel: Normal. No obstruction. No mucosal thickening. Appendix: No evidence of appendicitis. Intraperitoneal space: Normal. No free air. No significant fluid collection. Vasculature: Normal. No abdominal aortic aneurysm. Lymph nodes: Normal. No enlarged lymph nodes. Bladder: Unremarkable as visualized. Reproductive: Unremarkable as visualized. Bones/joints: No acute fracture. No dislocation. Soft tissues: Unremarkable. IMPRESSION: Multiple gallstones in the distended gallbladder. There may be mild pericholecystic inflammatory changes. Recommend further evaluation for acute cholecystitis Dictated and Authenticated by: Randi Chacon MD. Ordering:YULIYA Sabillon MD
--- NOTE | 2019-05-22 08:17 | NUR.NOTE ---
F/U referral faxed to [facility] General SurgeryNursing Note:
== END 2019-05-21 17:08 | disposition home or self-care (01) ==
PROVIDERS: Emergency Provider Student in an Organized Health Care Education/Training Program; PCP Family Medicine
DX: K21.9 Gastro-esophageal reflux disease without esophagitis (principal); R10.13 Epigastric pain; K80.50 Calculus of bile duct without cholangitis or cholecystitis without obstruction; E11.9 Type 2 diabetes mellitus without complications; Z79.84 Long term (current) use of oral hypoglycemic drugs
CPT/HCPCS: 36415; 74177; 80053; 83690; 93005; 96361; 96374; 96375; 99285; 71260; 84484; 85025; 85610; 85730; 93010; J1885; J2405; J3490

== ENCOUNTER 2019-05-23 08:22 | Outpatient (CLI) | payer MEDICAID, SELFPAY ==
[2019-05-23 11:54] LABS: TSH (W/Ref FT4) 2.02 uIU/mL (0.358-3.74)
== END 2019-05-23 08:42 ==
PROVIDERS: PCP Family Medicine; Visit Provider Family Medicine
DX: E03.9 Hypothyroidism, unspecified (principal)
CPT/HCPCS: 36415; 84443

== ENCOUNTER 2019-11-12 07:33 | Outpatient (CLI) | payer MEDICAID, SELFPAY ==
[2019-11-12 09:48] LABS: Hemoglobin A1C 6.5 % (3.8-5.6)
== END 2019-11-12 07:53 ==
PROVIDERS: PCP Family Medicine; Visit Provider Family Medicine
DX: E11.9 Type 2 diabetes mellitus without complications (principal)
CPT/HCPCS: 36415; 83036

== ENCOUNTER 2020-04-28 01:15 | Outpatient (CLI) | payer MEDICAID, SELFPAY ==
[2020-04-28 11:49] LABS: CREATININE 0.77 mg/dL (0.55-1.02); Calculated LDL 115 mg/dL (<100); Cholesterol 172 mg/dL (<200); HDL Cholesterol 36 mg/dL (40-60); TSH (W/Ref FT4) 1.76 uIU/mL (0.36-3.74); Triglyceride 107 mg/dL (<150)
[2020-04-28 11:52] LABS: COMMENT (LAB VIEW ONLY) 165.14 mg/dL; HCT 36.3 % (36.0-46.0); HGB 11.3 g/dL (12.0-15.5); Mean Corp. HGB Concentration 31.1 g/dL (32.0-36.0); Mean Corpuscular Hemoglobin 24.9 pg (27.0-33.0); Mean Platelet Volume 10.7 fL (8.0-11.0); Microalb ug/mg Crea 6.8 ug/mg Cr; Platelet Count 351 x1000/uL (130-400); RBC 4.54 m/cumm (4.00-5.20); RBC Distribution Width 15.6 % (11.7-14.6); White Blood Cell Count 12.09 k/cumm (4.4-10.8)
[2020-04-28 12:22] LABS: Hemoglobin A1C 6.5 % (3.8-5.6)
== END 2020-04-28 01:35 ==
PROVIDERS: PCP Family Medicine; Visit Provider Family Medicine
DX: E11.9 Type 2 diabetes mellitus without complications (principal); E78.5 Hyperlipidemia, unspecified; R73.9 Hyperglycemia, unspecified; E03.9 Hypothyroidism, unspecified
CPT/HCPCS: 80061; 85027; 82043; 82565; 82570; 83036; 84443

== ENCOUNTER 2020-10-15 01:38 | Outpatient (CLI) | payer MEDICAID, SELFPAY ==
--- NOTE | 2020-10-15 07:00 | DI.RAD_ITS ---
EXAM: XR KNEE LT 3V AP,LAT,BAILEY CLINICAL HISTORY: left knee pain,M25,562. TECHNIQUE: 2D digital imaging was performed. COMPARISON: No exams were available for comparison FINDINGS: There is no evidence fracture. Small amount of increased joint fluid. No degenerative changes evide nt. No significant osseous lesions. Benign bone island noted in the medial femoral condyle. Signif icant IMPRESSION: No significant osseous findings. Small joint effusion. DATA REPOSITORY: RADIATION DOSE DELIVERED:
== END 2020-10-15 01:58 ==
PROVIDERS: PCP Family Medicine; Visit Provider Family Medicine
DX: M25.562 Pain in left knee (principal)
CPT/HCPCS: 73562

== ENCOUNTER 2021-01-23 05:02 | Outpatient (CLI) | payer MEDICAID, SELFPAY ==
--- NOTE | 2021-01-23 07:15 | DI.US_ITS ---
EXAM: US LOWER EXTREMITY VENOUS LT CLINICAL HISTORY: Red/swELLING CATHY,M79.89. TECHNIQUE: Lower extremity venous ultrasound performed using grayscale, color-flow, and spectral Do ppler analysis. COMPARISON: No exams were available for comparison FINDINGS: The common femoral, femoral and popliteal veins demonstrate normal compressibility, augmentation, and color Doppler. The posterior tibial veins are patent. No saphenous vein thrombosis or other superfi cial venous thrombosis is seen. No hematoma or Wagner's cyst is seen. IMPRESSION: Negative lower extremity ultrasound. No evidence of DVT. DATA REPOSITORY:
== END 2021-01-23 05:22 ==
PROVIDERS: PCP Family Medicine; Visit Provider Nurse Practitioner Family
DX: R22.42 Localized swelling, mass and lump, left lower limb (principal)
CPT/HCPCS: 93971

== ENCOUNTER 2021-04-10 00:23 | Outpatient (CLI) | payer MEDICAID, SELFPAY ==
--- NOTE | 2021-04-10 13:00 | NS.NUTBLAN_ITS ---
Jaki was referred to Medical Nutrition Therapy for weight management and diabetes management. Jaki states she does not have diabetes but wants to pursue weight loss surgery at [facility]. 5'4 338 lbs BMI: 57. PMH: sleep apnea, hypothyroidism, edema. She lives with and 7 year old daughter. No recent labs available. Jaki reports difficulty using her CPAP and will follow up with her PCP to investigate alternative CPAP machines that may be a better fit for her. Diet record indicates that she typically eats only once a day and that she/ cook food at home. No intake of convenience foods noted. She is active around house but has knee pain that keeps her from being more active. Her goal weight is 190 lbs. Session today discussed pros and cons of weight loss surgery and reviewed her concerns/fears about the procedure re: diet. Provided Jaki with meal plan pre surgery to help boost her metabolism for optimal weight loss. She is willing to drink protein shakes for B and L and continue to eat lower carb dinners with emphasis on complex carbs, lean protein and healthy fats. Also recommended MVI, 1000 mcg biotin. goal weight loss prior to surgery is 25 lbs. Follow up appt. 05/07/21 at 1 pm.
== END 2021-04-10 00:24 | disposition home or self-care (01) ==
PROVIDERS: PCP Family Medicine; Visit Provider Dietitian, Registered
DX: E66.8 Other obesity (principal); E03.9 Hypothyroidism, unspecified; Z68.43 Body mass index [BMI] 50.0-59.9, adult; Z71.3 Dietary counseling and surveillance
CPT/HCPCS: 97802

== ENCOUNTER 2022-05-04 22:01 | Outpatient (REF) | payer MEDICAID, SELFPAY | END 2022-05-04 22:02 | disposition home or self-care (01) | LOC: LBN 22:01 | PROVIDERS: PCP Family Medicine; Visit Provider Family Medicine | DX: S81.802A Unspecified open wound, left lower leg, initial encounter (principal); R60.0 Localized edema | CPT/HCPCS: 87077; 87070; 87205 ==

== ENCOUNTER 2022-05-11 03:44 | Outpatient (CLI) | payer MEDICAID, SELFPAY | END 2022-05-11 03:45 | disposition home or self-care (01) | LOC: LOS 03:44 | PROVIDERS: PCP Family Medicine; Visit Provider Family Medicine ==

== ENCOUNTER 2022-05-13 04:18 | Outpatient (CLI) | payer MEDICAID, SELFPAY | END 2022-05-13 04:19 | disposition home or self-care (01) | LOC: LOS 04:19 | PROVIDERS: PCP Family Medicine; Visit Provider Family Medicine ==

== ENCOUNTER 2022-05-17 03:03 | Outpatient (CLI) | payer MEDICAID, SELFPAY ==
[2022-05-17 13:27] LABS: CREATININE 0.7 mg/dL (0.55-1.02); Calculated LDL 104 mg/dL (<100); Cholesterol 165 mg/dL (<200); HDL Cholesterol 41 mg/dL (40-60); Triglyceride 101 mg/dL (<150)
== END 2022-05-17 03:04 | disposition home or self-care (01) ==
LOC: LOS 03:03
PROVIDERS: PCP Family Medicine; Visit Provider Family Medicine
DX: E78.5 Hyperlipidemia, unspecified (principal); I10 Essential (primary) hypertension
CPT/HCPCS: 36415; 80061; 82565

== ENCOUNTER 2022-07-23 01:18 | Outpatient (CLI) | payer MEDICAID, SELFPAY ==
--- OUTSIDE RECORDS SUMMARY | 2022-07-23 01:22 | XMS_ITS | Encounter Summary ---
:1980 Author Organization [facility] Address [address] [place] [address] Care Team Providers Name Role Phone Isidro Weinstein MD Primary Care Provider Encounter Details Date Type Department Care Team Description 11/14/2007 Orders Only Radiology and Cardiology Apd Conversion, Results Results Provider, [address] [place] [id number] Social History Tobacco Use Types Packs/Day Years Used Date Never Assessed Sex Assigned at Date Recorded Not on file documented as of this encounter Plan of Treatment Not on filedocumented as of this encounter Procedures Procedure Name Priority Date/Time Associated Diagnosis Comme nts CYTOPATHOLOGY Routine 11/14/2007 Results for th is GYNECOLOGICAL procedure are in the results section . documented in this encounter Results (ABNORMAL) Cytopathology Gynecological (11/14/2007) [facility] Method Time Signature Roll Operator Cytology Please see FIDELIA HERMAN Final Report Fidelia Messina legacy report (External Lab) Specimen (Source) Anatomical Location Collection Method / Collectio n Time Received Time / Laterality Volume 11/14/2007 Narrative CONVERSION - 11/22/2007 Please see Legacy report Results Provider Apd Conversion PATHOLOGY/CYTOLOGY ORDERABLES Performing Organization Address City/State/ZIP Code Phon e Number FIDELIA MESSINA CONVERSION [address] [place], [place] [address] FIDELIA MESSINA DAY CONVERSION documented in this encounter Visit Diagnoses Not on filedocumented in this encounter Care Teams Dental Technician Instructor Relationship Specialty Start Date End Date Isidro Weinstein MD PCP - General Family Medicine 04/25/[address] [place] [address] documented as of this encounter
--- OUTSIDE RECORDS SUMMARY | 2022-07-23 01:22 | XMS_ITS | Encounter Summary ---
:1980 Author Organization [facility] [place] [address] Care Team Providers Name Role Phone Isidro Weinstein MD Primary Care Provider Encounter Details Date Type Department Care Team Description 03/23/2021 External Results Weight and Wellness at Yolanda Hubbard , RN [facility] [address] [place] [address] Social History Tobacco Use Types Packs/Day Years Used Date Never Smoker Alcohol Use Standard Drinks/Week Comments Yes 0 (1 standard drink = 0.6 oz pure alcoho l) Sex Assigned at Date Recorded Not on file documented as of this encounter Plan of Treatment Not on filedocumented as of this encounter Goals Goal Patient Goal Associated Recent Patient-Stated? Author Type Problems Progress food Lifestyle No svetlana Watters/kelsi Chang timing/ LINE MAINTAINER SECTION bariatric behaviors Note: Formatting of this note might be d ifferent from the original. Meal timing: consider eating within an 8 -10 hour eating window, nothing after dinner, avoid snacking will have formal RD visit for individual ized dietary plan to address eating behaviors and timing/frequency of meals. Try to eliminate sugar sweetened beverag es and artifical sweetener in drinks. Decrease processed food in favor of more whole foods Avoid or limit alcohol Goal 64 ounce of water daily. Some Bariatric behaviors to work on: Separate eating and drinking by 30 minut es Eat smaller meals and take 20-30 minutes to eat a meal-chew thoroughly Drink water throughout the day in sips, goal is 64 oz a day Eat protein first at each meal and eatin g episode sleep Lifestyle No DuongEsther brian APRN Note: Formatting of this note might be d ifferent from the original. Follow up with sleep medicine at [facility] t o resume treating sleep apnea Goal 7 hours of sleep nightly. Recommend consistent sleep and wake time s, avoid electronics within one hour of sleep time movement Lifestyle No Esther Watters APRN Note: Formatting of this note might be d ifferent from the original. Exercise goal is 150 min a week, Recommend resistance training 3 times a week -can use therabands documented as of this encounter Procedures Procedure Name Priority Date/Time Associated Diagnosis Comme nts HEMOGRAM Routine 04/28/2020 Results for thi s procedure are in the resu lts section. documented in this encounter Results (ABNORMAL) Hemogram (04/28/2020) P athologist Signature WBC 12.09 (ExtH) RBC 4.54 (External Lab) Hemoglobin 11.3 (ExtL) Hematocrit 36.3 (External Lab) MCV 80.0 (External Lab) MCH 24.9 (ExtL) MCHC 31.1 (ExtL) RDWCV 15.6 (ExtH) Platelets 351 (External Lab) MPV 10.7 (External Lab) Specimen (Source) Anatomical Location Collection Method / Collectio n Time Received Time / Laterality Volume Blood 04/28/2020 Historical Provider HEMATOLOGY ORDERABLES documented in this encounter Visit Diagnoses Not on filedocumented in this encounter Care Teams Condenser Winder Relationship Specialty Start Date End Date Isidro Weinstein MD PCP - General Family Medicine 04/25/[address] [place] [address] documented as of this encounter
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
--- OUTSIDE RECORDS SUMMARY | 2022-07-23 01:22 | XMS_ITS | Encounter Summary ---
:1980 Author Organization [facility] [place] [address] Care Team Providers Name Role Phone Isidro Weinstein MD Primary Care Provider [phone] Encounter Details Date Type Department Care Team Description 03/23/2021 Notes Only Weight and Wellness at [facility] Inez [address], [address] [place] [address] Social History Tobacco Use Types Packs/Day Years Used Date Never Smoker Alcohol Use Standard Drinks/Week Comments Yes 0 (1 standard drink = 0.6 oz pure alcoho l) Sex Assigned at Date Recorded Not on file documented as of this encounter Progress Notes Yolanda Hubbard - 03/23/2021 12:33 PM EDT [facility] New Patient Referral Chart Prep Note Jaki Perkins Bibiana 1980 Referring Provider: Stefanie Trejo [x] [facility] referral (Epic) [] External Referral (scanned document) Referral documents available [x] Referral [x] Most recent PCP note or care summary - date: 03/18/21 [x] Labs [] in Epic [x] Scanned / [x] Entered into EPIC [] Imaging [] in Epic [] Scanned / Type and date: Requested today: Chart Prep [x] Height [x] Added to sticky [x] Weight [x] Added to sticky For Bariatric Surgery Referral [] BSP Start weight: [] Add to sticky [x] Information session attended / date: 03/13/21 [] BSP Checklist documented in this encounter Plan of Treatment Not on filedocumented as of this encounter Visit Diagnoses Not on filedocumented in this encounter Care Teams Wool Handler Relationship Specialty Start Date End Date Isidro Weinstein MD PCP - General Family Medicine 04/25/[address] [place] [address] documented as of this encounter
--- OUTSIDE RECORDS SUMMARY | 2022-07-23 01:22 | XMS_ITS | Encounter Summary ---
:1980 [place] [address] Care Team Providers Name Role Phone Boris Espino MD Primary Care Provider Encounter Details Date Type Department Care Team Description 12/08/2011 Anesthesia Event Main Operating Room Mila Govea MD [facility] [place] [address] [facility] Otis Rome MD [facility] [place] [address] [place] [address] Anesthesia Record Procedure Summary Procedure Name Responsible Anesthesia Start Anesthesia Stop Anesthesiologist Time Time SURGICAL EXTRACTIONS Mila Loving MD 12/08/11 1222 1426 REQUIRING ELEVATION OF MUCOPERIOSTEAL FLAP AND REMOVAL OF BONE OR SECTION OF TOOTH (WRVU 1.09) (Bilateral Mouth) Events Date Time Event Comment 12/08/2011 1205 1222 Start 1426 Stop No medications on file. Agents No agents on file. Blood No blood administrations on file. Lines, Drains, and Airways Type Details Placement Removal Incision 12/08/11; jaw; 07/05/22 12/08/11 0000 by Nely, 07/05/22 1715 by Virgen, (LDA cleanup utility PHUONG Chiu RA#[id number]); 1715 (LDA cleanup utility RA#[id number]) PIV 12/08/11; 1104; 12/08/11; 12/08/11 1104 by 12/08 1604 by Kun, 1604 Kate Sampson RN Kimberly F, RN Incision 12/08/11; 1257; jaw; 12/08/11 1257 by Nely, 1715 by Virgen, 07/05/22 (LDA cleanup PHUONG Chiu utility RA#[id number]); 1715 (LDA cleanup utility RA#[id number]) documented in this encounter Social History Tobacco Use Types Packs/Day Years Used Date Never Smoker Sex Assigned at Date Recorded Not on file documented as of this encounter OR Notes Anesthesia Postprocedure Evaluation - Mila Loving MD - 12/09/2011 1:47 PM EST Patient: Jaki Mccarty Procedure(s) Performed: SURGICAL EXTRACTIONS REQUIRING ELEVATION OF MUCOPERIOSTEAL FLAP AND REMOVAL OF BONE OR SECTION OF TOOTH - teeth numbers 1,3 and 16; SURGICAL EXTRACTIONS, REMOVAL OF IMPACTED TOOTH, SOFT TISSUE - teeth numbers 17 and 32 Patient location: PACU Post-op pain: Adequate analgesia Post-op nausea: no nausea or vomiting Last Vitals: Filed Vitals: 12/08/11 1546 BP: 148/89 Pulse: 69 Temp: Resp: 18 Post-op cardiovascular and respiratory status: is stable Level of consciousness: awake and alert Complications: no apparent complications and tolerated the procedure well Fluid Status: normal Anesthesia Preprocedure Evaluation - Mila Loving MD - 12/08/2011 11:40 AM EST Anesthesia Evaluation No hx of anesthetic complications Airway Mallampati: II TM distance: >3 FB Neck ROM: full Dental - normal exam Pulmonary (+) asthma (very mild asthma. Last had symptoms last spring), (-) recent URI Cardiovascular - negative ROS Exercise tolerance: good (-) past [place] Neuro/Psych - negative ROS GI/Hepatic/Renal - negative ROS (-) GERD Endo/Other - negative ROS Abdominal (+) obesity, Anesthesia Plan ASA 2 General with intravenous induction Anesthetic plan and risks discussed with patient. Plan discussed with attending. documented in this encounter Plan of Treatment Not on filedocumented as of this encounter Visit Diagnoses Not on filedocumented in this encounter Care Teams Skilled Nursing Professional Relationship Specialty Start Date End Date Boris Espino MD PCP - General 07/23/11 07/21/14 [address] [place] [address] documented as of this encounter
--- OUTSIDE RECORDS SUMMARY | 2022-07-23 01:22 | XMS_ITS | Encounter Summary ---
:1980 Author Organization [facility] [place] [address] Care Team Providers Name Role Phone Boris Espino MD Primary Care Provider Reason for Visit Reason Comments Other 3rds consult Encounter Details Date Type Department Care Team Description 10/14/2011 Office Visit Maxillofacial Surgery Amanda Wolff MD Caries (Primary Dx); at [facility] DR Dental impaction [facility] [address] SURGERY [place] [id number] [phone] Social History Tobacco Use Types Packs/Day Years Used Date Never Assessed Sex Assigned at Date Recorded Not on file documented as of this encounter Last Filed Vital Signs Vital Sign Reading Time Taken Comments Blood Pressure 133/82 10/14/2011 4:22 PM EST Pulse 91 10/14/2011 4:22 PM EST Temperature - - Respiratory Rate - - Oxygen Saturation - - Inhaled Oxygen Concentration - - Weight - - Height - - Body Mass Index - - documented in this encounter Progress Notes Micheal Wolff MD - 10/14/2011 4:52 PM EST Jaki Mccarty is a 30 y.o. female who presents for consultation regarding impacted wisdom teeth.This request is from Dr. Adams at [facility]. Present History: Moderate gag reflex, difficult experience with attempted extraction of tooth #16 with significant facial and periorbital swelling. Had ortho in childhood. Told she would need five extractions. Pertinent Medical History: asthma Levalbuterol Tartrate (XOPENEX HFA) 45 mcg/Actuation inhaler; albuterol (PROVENTIL HFA;VENTOLIN HFA)90 mcg/Actuation inhaler; OXYcodone-acetaminophen (PERCOCET) 5-325 mg per tablet No Known Allergies Clinical Examination: Jaki is well nourished , robust and well developed and in no acute distress with no facial asymmetry and no cervical lymphadenopathy. Detailed examination of the cranial nerves,facial musculature, lips, tongue, floor of mouth, buccal mucosa, hard and soft palate, oropharynx, dentition, occlusion and temporomandibular joints was performed. A full range of jaw motion is noted. Abnormal and pertinent findings include: Insufficient space for normal eruption of third molars; yet the third molars have partially erupted and are grossly carious. There is a sharp associated cusp in the left posterior quadrant with irritation and ulceration of the buccal mucosa. This is also the case on the upper right posterior region. There is an upper right first molar which is carious to the gingival crest. The upper right second molar also has a large carious lesion but the tooth is firm and clearly restorable. Good occlusion. Maxillary third molars are erupted. Mandibular third molars are soft tissue impacted. Gross carious lesions are identified as noted above. Radiographic Examination: Well mineralized mandible and maxilla with carious third molars in all 4 quadrants as well as a carious lesion involving the maxillary right second molar and maxillary right first molar. Periapical osteosclerosis is also noted on the lower right second molar.. The root apicesof the lower third molars are proximate to the inferior alveolar nerves. Impression: Carious and impacted third molars as well as malposed third molars.. Plan: The patient will require a general anesthetic given her gag reflex and anxiety regarding intraoral intervention given her last experience. Thirty minutes was spent with the patient greater than 25 of which involved the direct review of the findings on clinical and radiographic exam as well as a discussion of the risks and anticipated benefits of the proposed surgical intervention. The possibility of bleeding, infection, injury to adjacent teeth, nerves and sinuses was reviewed with specific attention to inferior alveolar and lingual nerves and the potential for tongue and/or lip paresthesia. Persistent opening or fistula to the maxillary sinus was also discussed. Jaki was given the opportunity to ask questions regarding the findings on clinical and radiographic examination and the recommended treatment. Radiographs were reviewed with the patient and instructions were given to call us if any questions arise. Preoperative and postoperative management was alsodiscussed with specific attention to post operative alteration of diet and physical activity and theuse of analgesics. CC: [facility] documented in this encounter Miscellaneous Notes Miscellaneous - Gaudencio Formula Technician - 01/20/2012 12:40 PM EDT documented in this encounter Plan of Treatment Not on filedocumented as of this encounter Visit Diagnoses Diagnosis Caries - Primary Unspecified dental caries Dental impaction Disturbances in tooth eruption documented in this encounter Care Teams Sustainable Systems Analyst Relationship Specialty Start Date End Date Boris Espino MD PCP - General 07/23/11 07/21/14 [address] [place] [address] documented as of this encounter
--- OUTSIDE RECORDS SUMMARY | 2022-07-23 01:22 | XMS_ITS | Clinical Summary ---
:1980 Author Organization [facility] [place] [address] Care Team Providers Name Role Phone Isidro Weinstein MD Primary Care Provider [phone] Allergies Active Allergy Reactions Severity Noted Date Comments Coconut High 02/18/2021 Other reaction( s): THROAT CLOSES Latex Medium 02/18/2021 Other reaction( s): Skin Rash Medications Medication Sig Dispensed Refills Start Date End Date Status albuterol (PROVENTIL 0 07/06/2010 Active HFA;VENTOLIN HFA) 90 mcg/Actuation inhaler dextroamphetamine-amphet Take 20 mg by 0 Active amine (ADDERALL) 20 mg mouth Daily. Tablet levothyroxine Take by mouth. 0 01/29/2021 Active (Synthroid) 100 mcg Tablet loratadine (Claritin) 10 Take by mouth. 0 08/26/2020 Active mg Tablet Active Problems Problem Noted Date Class 3 severe obesity due to excess calories without serious comorbidity 03/25/2021 with body mass index (BMI) of 50.0 to 59.9 in adult Hypothyroidism 03/25/2021 Insulin resistance 03/25/2021 Pre-diabetes 03/25/2021 Foot pain 05/08/2012 Resolved Problems Problem Noted Date Resolved Date Fungal dermatitis 05/08/2012 03/25/2021 Immunizations Name Administration Dates Next Due Rabies vaccine, intramuscular 04/19/2005, 04/12/2005 Family History Medical History Relation Comments Skin Cancer Mother melanoma right paran gerardo area Relation Status Comments Mother Social History Tobacco Use Types Packs/Day Years Used Date Never Smoker Smokeless Tobacco: Never Used Alcohol Use Standard Drinks/Week Comments Yes 0 (1 standard drink = 0.6 oz pure alcoho l) Sex Assigned at Date Recorded Not on file Last Filed Vital Signs Vital Sign Reading Time Taken Comments Blood Pressure 146/75 03/25/2021 9:48 AM EDT Pulse 102 03/25/2021 9:48 AM EDT Temperature 36.6 ??C (97.9 ??F) 01/05/2015 9:13 PM EST Respiratory Rate 18 03/25/2021 9:48 AM EDT Oxygen Saturation 100% 03/25/2021 9:48 AM EDT Inhaled Oxygen Concentration - - Weight 150.3 kg (331 lb 6.4 oz) 03/25/2021 9:48 AM EDT Height 163.2 cm (5' 4.25) 03/25/2021 9:48 AM EDT Body Mass Index 56.44 03/25/2021 9:48 AM EDT Plan of Treatment Health Maintenance Due Date Last Done Comments Covid-19 Vaccine (#1) 1984 HIV screen 1997 Hepatitis C Screening 1997 Tdap adult 1998 Tetanus vaccine 1998 HPV test 2009 PAP Smear 11/14/2012 11/14/2007 Lipid Screening 01/09/2013 01/10/2008 Breast Cancer Share Decision Needed 2019 Pre-DM monitoring (HgbA1C or FBG) 03/25/2022 03/25/2021, , 05/08/2012 Influenza (Flu) vaccine ( - 07/08/2022 Influenza standard series) Goals Goal Patient Goal Associated Recent Patient-Stated? Author Type Problems Progress food Lifestyle No Duong, choices/meal Esther Chang timing/ PRESCHOOL ASSISTANT TEACHER bariatric behaviors Note: Formatting of this note [...] and eatin g episode sleep Lifestyle No Esther Watters APRN Note: Formatting of this note might be d ifferent from the original. Follow up with sleep medicine at [facility] t o resume treating sleep apnea Goal 7 hours of sleep nightly. Recommend consistent sleep and wake time s, avoid electronics within one hour of sleep time movement Lifestyle No Esther Watters APRN Note: Formatting of this note might be d ifferent from the original. Exercise goal is 150 min a week, Recommend resistance training 3 times a week -can use [employer] Nutrition - 05/21/[address] Note: Formatting of this note might be d ifferent from the original. Nutrition Goals: Establish meal routine - 3 eating events a day: 10am breakfast, 1-2pm lunch/snack, 5pm dinner; include protein at every eating event (cheese, nuts/nut butters, beans/lentils, chicken/pork/beef/turkey, fish/tuna) Practice bariatric drinking behaviors - separate eating and drinking by 30 minutes; do not bring a drink to the table for meal times; consider using sauces to moisten food; reduce intake of sugar/cream and/or size of coffee Establish exercise routine - include tariq ly walking in amounts tolerable for back pain, increase as able to goal of 150 minutes per week; consider including resistance/muscle building exercise once a week or more as able Insurance Payer Benefit Plan / Subscriber ID Effective Dates Phone Addre ss Type Group [place] [id number] 2017-[place] [phone] [address] [place], [place] [address] Care Teams Splitter Hand Relationship Specialty Start Date End Date Isidro Weinstein MD PCP - General Family Medicine 04/25/[address] [place] [address]
--- OUTSIDE RECORDS SUMMARY | 2022-07-23 01:22 | XMS_ITS | Encounter Summary ---
:1980 Author Organization [facility] [place] [address] Care Team Providers Name Role Phone Boris Espino MD Primary Care Provider Encounter Details Date Type Department Care Team Description 12/08/2011 Surgery Main Operating Room Matthew Wolff MD SURGICAL EXTRACTIONS [facility] ER DR REQUIRING ELEVATION OF [facility] ORAL & MAXILLOFACIAL MUCOPERIOSTEAL FLAP AND [facility] SURGERY [place]OVAL [place] [address] SECTION OF TOOTH ([place], [place] [phone] (Wo rk) [phone] Social History Tobacco Use Types Packs/Day Years Used Date Never Smoker Sex Assigned at Date Recorded Not on file documented as of this encounter Last Filed Vital Signs Vital Sign Reading Time Taken Comments Blood Pressure 148/89 12/08/2011 3:46 PM EST Pulse 69 12/08/2011 3:46 PM EST Temperature 36.2 ??C (97.2 ??F) 12/08/2011 2:23 PM EST Respiratory Rate 18 12/08/2011 3:46 PM EST Oxygen Saturation 98% 12/08/2011 3:46 PM EST Inhaled Oxygen Concentration - - Weight - - Height - - Body Mass Index - - documented in this encounter Discharge Instructions Discharge Nancy Corado RN - 12/08/2011 3:24 PM EST POST ANESTHESIA INSTRUCTIONS Go home, rest, use caution on stairs. Change positions slowly. Do not smoke if you are alone. Diet light to regular as tolerated today. If nausea occurs start with clear liquids and progress slowly. No driving, operating machinery, alcoholic beverages and no important decisions for 24 hours. Monitor IV site for signs and symptoms of infection: increasing redness, swelling, foul drainage, ifoccurs contact M.D. Patients who have had endotrachial tubes (this tube, used by anesthesia department, is passed down your throat after you are asleep, to ensure safe air passage during your operation). A sore throat is normal due to the tube. Cold liquids or soothing lozenges will help ease the discomfort. The generalized muscle aches are due to the medication given to you just before the tube is inserted. As the medication wears off, you may develop muscle soreness, which usually goes away in 12-24 hours. documented in this encounter Medications at Time of Discharge Medication Sig Dispensed Refills Start Date End Date albuterol (PROVENTIL HFA;VENTOLIN HFA) 90 0 07/06/2010 mcg/Actuation inhaler documented as of this encounter H&P Notes Micheal Wolff MD - 12/08/2011 12:16 PM EST The patient's history and physical exam have been reviewed and completed. There has been no intervalchange from that of the pre-operative history and physical exam done within the last 30 days. Source Note - Micheal Wolff MD - 12/08/2011 12:15 PM EST Patient Name: Jaki Mccarty Patient Age: 31 y.o. Birthdate: 1980 Admit date: 12/08/2011 Attending Physician: Micheal Wolff MD Out patient history of nov reviewed. Micheal Wolff MD - 12/08/2011 12:15 PM EST Patient Name: Jaki Mccarty Patient Age: 31 y.o. Birthdate: 1980 Admit date: 12/08/2011 Attending Physician: Micheal Wolff MD Out patient history of nov reviewed. documented in this encounter Miscellaneous Notes Miscellaneous - Provider, Scanning - 01/20/2012 10:13 AM EDT Miscellaneous - Provider, Scanning - 12/09/2011 12:45 AM EST Miscellaneous - Provider, Scanning - 12/09/2011 12:38 AM EST Op Note - Micheal Wolff MD - 12/08/2011 2:20 PM EST [facility] Operative Note Patient Name: Jaki Mccarty : [id number] MR#: [id number] Case Date: 12/08/2011 Surgeon: Surgeon(s) and Role: * MICHEAL WOLFF MD - Primary Preoperative diagnosis: caries Postoperative diagnosis: caries Procedure(s): SURGICAL EXTRACTIONS REQUIRING ELEVATION OF MUCOPERIOSTEAL FLAP AND REMOVAL OF BONE OR SECTION OF TOOTH SURGICAL EXTRACTIONS, REMOVAL OF IMPACTED TOOTH, SOFT TISSUE General Estimated Blood Loss: min Drains: 0 Disposition: awakened from anesthesia, extubated and taken to the recovery room in a stable condition, having suffered no apparent untoward event. Condition: doing well without problems (Please see the Surgical Encounter Summary for any Implant and Specimen details pertinent to this patient.) HPI/Surgical Indications: impacted and carious wisdom teeth and carious upper right first molar. teeth 1, 3, 16, 17, 32. Procedure Description: The patient was brought to the operating room and placed under general anesthesia via nasoendotracheal tube. Jaki Mccartywaalma prepped and draped in the standard fashion for oral and maxillofacial surgery resident. The oral cavity was suctioned and an oral pharyngeal pack was placed. 7 cc of 1% Xylocaine with 1-200,000 epinephrine was used to infiltrate the surgical sites. Tooth #1 SURGICAL: A surgical blade was used to incise the mucosa overlying the tooth and the mucoperiosteum was reflected with a periosteal elevator. A minimal degree of bone was removed and the toothwas sectioned to facilitate its removal with appropriate elevators and forceps. Curettage of the socket followed with coptation of the gingiva using 3-0 catgut sutures. Tooth #3 SURGICAL: A surgical blade was used to incise the mucosa overlying the tooth and the mucoperiosteum was reflected with a periosteal elevator. A minimal degree of bone was removed and the toothwas sectioned to facilitate its removal with appropriate elevators and forceps. Curettage of the socket followed with coptation of the gingiva using 3-0 catgut sutures. Tooth #16 SURGICAL: A surgical blade was used to incise the mucosa overlying the tooth and the mucoperiosteum was reflected with a periosteal elevator. A minimal degree of bone was removed and the tooth was sectioned to facilitate its removal with appropriate elevators and forceps. Curettage of the socket followed with coptation of the gingiva using 3-0 catgut sutures. Tooth #17 STI: A surgical blade was used to incise mucoperiosteum. Periosteal elevators were then used to reflect the soft tissue and the tooth was elevated and extracted with appropriate elevators andforceps. A 3-0 catgut suture was used to coapt the gingiva. Tooth #32 STI: A surgical blade was used to incise mucoperiosteum. Periosteal elevators were then used to reflect the soft tissue and the tooth was elevated and extracted with appropriate elevators andforceps. A 3-0 catgut suture was used to coapt the gingiva. No evidence of injury to the sinuses or inferior alveolar nerve noted However, the inferior alveolarnerve appeared to course high in the socket, especially on the right side coursing midway down the extraction or socket site. Teeth were grossly carious and bone dense requiring multiple divisions. Theoral cavity was then carefully suctioned and the oral pharyngeal pack was removed. An oral gastric tube was passed to empty the stomach. The patient was awakened, extubated and brought to the recovery room in satisfactory condition having tolerated the procedure well with a minimum of blood loss. OR Attestation - Micheal Wolff MD - 12/08/2011 2:20 PM EST Attestation: Case Date: 12/08/2011 I performed this procedure without the involvement of a resident. MICHEAL WOLFF MD 12/08/2011 Miscellaneous - Provider, Scanning - 12/08/2011 9:46 AM EST documented in this encounter Plan of Treatment Not on filedocumented as of this encounter Procedures Procedure Name Priority Date/Time Associated Diagnosis Comme nts SURGICAL EXTRACTIONS, 12/08/2011 12:18 PM caries REMOVAL OF IMPACTED TOOTH, EST SOFT TISSUE (WRVU 1.39) SURGICAL EXTRACTIONS 12/08/2011 12:18 PM caries REQUIRING ELEVATION OF EST MUCOPERIOSTEAL FLAP AND REMOVAL OF BONE OR SECTION OF TOOTH (WRVU 1.09) documented in this encounter Visit Diagnoses Not on filedocumented in this encounter Administered Medications Inactive Administered Medications - up to 3 most recent administrations Medication Order MAR Action Action Date Dose Rate Site ampicillin-sulbactam (UNASYN) 3 g Given 12/08/2011 12:40 PM EST 3 g vial attach to sodium chloride 0.9% 100 mL Mini-Bag Plus 3 g, Intravenous, ONCE, 1 dose, On Tue12/08/11 at 1245, Administer over 30 Minutes, Day of Surgery (Day of Procedure) hydrocortisone 1 % ointment Given 12/08/2011 3:05 AM EST 5 mg ONCE PRN, Starting on Tue12/08/11 at 0305, Until Tue12/08/11 at 2025, Intra-Operative (Intra-Procedure) HYDROmorphone (PF) (DILAUDID) 2 mg/mL Given 12/08/2011 2:[address] 0.4 mg injection 0.2-0.4 mg 0.2-0.4 mg, Intravenous, EVERY 5 MIN PRN, Starting on Tue12/08/11 at 1418, Until Tue12/08/11 at 2025, Pain, For moderate pain give: 0.2 mg every 5 minute prn For severe pain give: 0.4 mg every 5 minutes prn Maximum dose: 4 mg per hour Hold for respiratory rate less than 10 per minute., PACU Recovery, Routine Given 12/08/2011 2:34 PM EST 0.4 mg lidocaine-epiNEPHrine 1 Given 12/08/2011 1:05 PM 9 mLs 19- Surgical Site %-1:200,000 injection EST ONCE PRN, Starting on Tue12/08/11 at 1305, Until Tue12/08/11 at 2025, Intra-Operative (Intra-Procedure), Routine documented in this encounter Active and Recently Administered Medications Times are shown in EST. Scheduled Medication Order 12/06/2011 12/07/2011 12/08/2011 ampicillin-sulbactam (UNASYN) 3 g vial a ttach to sodium chloride 0.9% 100 mL Mini-Bag Plus (COMPLETED) 1240 (Given - Provider: Mila Loving MD)1245 (Due) 3 g, Intravenous, ONCE, 1 dose, Tue at 1245, for 30 Minutes, Day of Surgery (Day of Procedure) PRN Medication Order 12/06/2011 12/07/2011 12/08/2011 hydrocortisone 1 % ointment (CANCELED) 0305 (Given - Provider: Micheal Wolff MD - Comment: applied to both lips) ONCE PRN, Starting Tue12/08/11 at 0305, F or 1 dose, Intra-Operative (Intra-Procedure) HYDROmorphone (PF) (DILAUDID) 2 mg/mL injection 0.2-0.4 mg (CAN ELED) 1434 (Given - Provider: Nancy Tristan RN - Comment: pt sukhwinder)1445 (Given - Provider: Nancy Tristan RN) 0.2-0.4 mg, Intravenous, EVERY 5 MIN PRN , Starting Tue12/08/11 at 1418, Until Tue12/08/11 at 2025, Pain, For moderate pain give: 0.2 mg every 5 minute prn For severe pain give: 0.4 mg every 5 minutes prn Maximum dose: 4 mg per hour Hold for res piratory rate less than 10 per minute., PACU Recovery, Routine lidocaine-epiNEPHrine 1 %-1:200,000 injection (CANCELED) 1305 (Given - Provider: Micheal Wolff MD - Comment: local infiltration) ONCE PRN, Starting Tue12/08/11 at 1305, U ntil Tue12/08/11 at 202, Intra-Operative (Intra-Procedure), Routine documented in this encounter Care Teams Barking Machine Feeder Relationship Specialty Start Date End Date Boris Espino MD PCP - General 07/23/11 07/21/14 [address] [place] [address] documented as of this encounter
--- OUTSIDE RECORDS SUMMARY | 2022-07-23 01:22 | XMS_ITS | Encounter Summary ---
:1980 Author Organization [facility] [place] [address] Care Team Providers Name Role Phone Isidro Weinstein MD Primary Care Provider [phone] Encounter Details Date Type Department Care Team Description 04/22/2021 TH Visit Weight and Wellness Tatiana Hernandes lt BMI 50.0-59.9 (TeleHealth) at [facility] L, RD kg/sq m [address] [place] [phone] Social History Tobacco Use Types Packs/Day Years Used Date Never Smoker Smokeless Tobacco: Never Used Alcohol Use Standard Drinks/Week Comments Yes 0 (1 standard drink = 0.6 oz pure alcoho l) Sex Assigned at Date Recorded Not on file documented as of this encounter Patient Instructions Patient InstructionsTatiana Hernandes, RD - 04/22/2021 9:00 AM EDT Nutrition Goals: ??? Establish meal routine - 3 eating events a day: 10am breakfast, 1-2pm lunch/snack, 5pm dinner; include protein at every eating event (cheese, nuts/nut butters, beans/lentils, chicken/pork/beef/turkey, fish/tuna) ??? Practice bariatric drinking behaviors - separate eating and drinking by 30 minutes; do not bringa drink to the table for meal times; consider using sauces to moisten food; reduce intake of sugar/cream and/or size of coffee ??? Establish exercise routine - include daily walking in amounts tolerable for back pain, increase as able to goal of 150 minutes per week; consider including resistance/muscle building exercise once a week or more as able documented in this encounter Progress Notes Tatiana Hernandes RD - 04/22/2021 9:00 AM EDT Nutrition Intervention for Weight Management RD visit with Jaki Cardoso Assessment/Nutrition Diagnosis: Pt at increased nutritional risk related to excessive calorie intakeand sub optimal physical activity resulting in overweight/obesity as evidenced by BMI and diet recall : 1980 Telephone visit conducted while patient was at home at the following address: [address] [place] [phone] Food Trackers: used to - find it difficult and not helpful; paper pencil and gurwinder; Activity: step counter not using; mow lawn, play with daughter - ball; walking - 5 minutes at a time; no hand weights or resistance; Weight Today: no scale at home; Vitals 03/25/2021 Height (Tongan) 64.25 Height (Metric) 163.2 cm Weight (Tongan) 331 lbs 6 oz Weight (Metric) 150.322 kg BMI (Calculated) 56.44 kg/m2 Weight Loss History: tried different diets, diet pills, nothing works; weight fluctuates - lose a little bit, gain it back and then some; can't exercise much because of back, have to sleep sitting up; in a lot of pain; weight has been an issue entire life, played sports as a child; lost 5-10 pounds; For full account, see 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 and initial visit encounter with Weight and Wellness provider Appetite/Hunger: not hungry Typical Dietary Intake: Wakeup - 4am; not hungry; not rested; 1011am B: fruit cups OR piece of cheese OR handful of nuts; large iced coffee - 8 cream and 8 sugar; 1011 OR 1-2pm first time feel hungry L: skipped 55:30 D: 4-5 oz chicken, canned vegetable OR cheeseburger OR steak, rice with gravy, corn and carrots; water Bedtime - 8/8:30pm fall asleep whenever, had CPAP but sent back because of anxiety Don't sleep at night, up at all hours Typical Beverages: 1x/day coffee; 4-5x/day 28 ounces water; milk rarely; soda 1x/week; no alcohol; Previous Wellness Goals: Goals ??? food choices/meal timing/ bariatric behaviors ?? Meal timing: consider eating within an 8-10 hour eating window, nothing after dinner, avoid snacking ?? will have formal RD visit for individualized dietary plan to address eating behaviors and timing/frequency of meals. ?? Try to eliminate sugar sweetened beverages and artifical sweetener in drinks. ?? Decrease processed food in favor of more whole foods ?? Avoid or limit alcohol ?? Goal 64 ounce of water daily. ?? Some Bariatric behaviors to work on: ?? Separate eating and drinking by 30 minutes ?? Eat smaller meals and take 20-30 minutes to eat a meal-chew thoroughly ?? Drink water throughout the day in sips, goal is 64 oz a day ?? Eat protein first at each meal and eating episode ??? movement ?? Exercise goal is 150 min a week, ?? Recommend resistance training 3 times a week -can use therabands ??? Nutrition - 04/22/21 Nutrition Goals: ??? Establish meal routine - 3 eating events a day: 10am breakfast, 1-2pm lunch/snack, 5pm dinner; include protein at every eating event (cheese, nuts/nut butters, beans/lentils, chicken/pork/beef/turkey, fish/tuna) ??? Practice bariatric drinking behaviors - separate eating and drinking by 30 minutes; do not bringa drink to the table for meal times; consider using sauces to moisten food; reduce intake of sugar/cream and/or size of coffee ??? Establish exercise routine - include daily walking in amounts tolerable for back pain, increase as able to goal of 150 minutes per week; consider including resistance/muscle building exercise once a week or more as able ??? sleep ?? Follow up with sleep medicine at [facility] to resume treating sleep apnea Goal 7 hours of sleep nightly. ?? Recommend consistent sleep and wake times, avoid electronics within one hour of sleep time Interview: no bread, no pasta just started eating rice again; got rid of coffee but started drinkingagain; Barriers to Change: none identified at this time Nutrition Goals: (1) drinking behaviors - cut back on sugar/cream in coffee, soda, don't bring a drink to table (2) 3 meal routine - protein first (3) exercise routine Assessing Calorie Goals at this time No Monitor/Evaluate: Will follow up in 1 month for additional consecutive monthly visits for a total of 3 RD visits OR as otherwise specified by patient's insurer. Patient will contact bariatric surgery team with any questions about insurance requirements ( ) Will discuss progress towards goals listed above Aim for 5-10% weight loss from ABW x 3-6 months from initial visit Thank you Tatiana Hernandes MS RDN LD 60 minutes were spent in visit today, including contact with patient via telephone, chart review, and documentation Patient verbally consents to this telephone visit and understands that this visit may be billed, similar to a clinic office visit. documented in this encounter Plan of Treatment Not on filedocumented as of this encounter Goals Goal Patient Goal Associated Recent Patient-Stated? Author Type Problems Progress food Lifestyle No svetlana Watters/monae Vargas/ FIRE FIGHTING [employer]QUIPMENT SPECIALIST bariatric behaviors Note: Formatting of this note [...] g episode sleep Lifestyle No Esther Watters FIRE FIGHTING EQUIPMENT SPECIALIST Note: Formatting of this note might be d ifferent from the original. Follow up with sleep medicine at [facility] t o resume treating sleep apnea Goal 7 hours of sleep nightly. Recommend consistent sleep and wake time s, avoid electronics within one hour of sleep time movement Lifestyle No Esther Watters FIRE FIGHTING EQUIPMENT SPECIALIST Note: Formatting of this note might be d ifferent from the original. Exercise goal is 150 min a week, Recommend resistance training 3 times a week -can use therabands Nutrition - 05/21/21 Lifestyle No Janelle hidalgo, Tatiana Chang, RD Note: Formatting of this note might [...] once a week or more as able documented as of this encounter Visit Diagnoses Diagnosis Adult BMI 50.0-59.9 kg/sq m Body Mass Index 50.0-59.9, adult documented in this encounter Care Teams Gas Substation Operator Relationship Specialty Start Date End Date Isidro Weinstein MD PCP - General Family Medicine 04/25/[address] [place] [address] documented as of this encounter
--- OUTSIDE RECORDS SUMMARY | 2022-07-23 01:22 | XMS_ITS | Encounter Summary ---
:1980 Author Organization [facility] [place] [address] Care Team Providers Name Role Phone Hortencia Lan MD Primary Care Provider Reason for Visit Reason Comments Back Pain Encounter Details Date Type Department Care Team Description 01/05/2015 Emergency Emergency Department Ben Casey MD Back contusion, [facility] unspeci fied laterality, [facility] DR initial encounter [facility] [place] [address] [place] [address] [phone] Social History Tobacco Use Types Packs/Day Years Used Date Never Smoker Alcohol Use Standard Drinks/Week Comments Yes 0 (1 standard drink = 0.6 oz pure alcoho l) Sex Assigned at Date Recorded Not on file documented as of this encounter Last Filed Vital Signs Vital Sign Reading Time Taken Comments Blood Pressure 156/92 01/05/2015 9:13 PM EST Pulse 94 01/05/2015 9:13 PM EST Temperature 36.6 ??C (97.9 ??F) 01/05/2015 9:13 PM EST Respiratory Rate 22 01/05/2015 9:13 PM EST Oxygen Saturation 96% 01/05/2015 9:13 PM EST Inhaled Oxygen Concentration - - Weight 136.5 kg (301 lb) 01/05/2015 2:17 PM EST Height - - Body Mass Index - - documented in this encounter Discharge Instructions Discharge InstructionsMichael Casey MD - 01/05/2015 9:[address] scan did not show any fractures. He should expect her back to hurt for several more days. Hecan take [id number] medications. You can also take the pain medication as prescribed. Do not take it with oxycodone or Percocet. Return if needed for worsening symptoms or new problems. See your doctor on for reevaluation documented in this encounter Medications at Time of Discharge Medication Sig Dispensed Refills Start Date End Date albuterol (PROVENTIL 0 07/06/2010 HFA;VENTOLIN HFA) 90 mcg/Actuation inhaler HYDROmorphone (DILAUDID) 2 Take 1 tablet by 30 tablet 0 11/201403/25/2021 mg Tablet mouth every 3 hours as needed for Pain. documented as of this encounter ED Notes Dwight Salamanca RN - 01/05/2015 9:15 PM EST Discharge paperwork and paper prescriptions provided to patient. Adequate time allotted for questions. Patient acknowledged comprehension. She ambulated from ED, and was given ride home from . Michael Casey MD - 01/05/2015 4:47 PM EST Chief Complaint Patient presents with ??? Back Pain This is a 34-year-old female who presents with back pain after a slip and fall. At approximately 1 PM today, she slipped on the ice fell backward and landed on her back. She didn't hit her head hard. She had no loss of consciousness. She presents complaining of mid to lower thoracic back pain and mid to lower lumbar back pain. She denies neck pain. She has no visual complaints. She has no focal weakness or paresthesias. She denies urinary retention or bowel incontinence. She took ibuprofen with insufficient relief Patient is a 34 y.o. female presenting with fall. Fall The accident occurred 3 to 5 hours ago. The fall occurred while walking. She fell from a height of 1to 2 ft. She landed on concrete. The pain is moderate. Pertinent negatives include no bowel incontinence, no vomiting, no headaches, no loss of consciousness and no tingling. Allergies Allergen Reactions ??? Unknown [Unclassified Drug] Pt is allergic to the powder in latex gloves Review of Systems Gastrointestinal: Negative for vomiting and bowel incontinence. Neurological: Negative for tingling, loss of consciousness and headaches. Physical Exam Constitutional: She is oriented to person, place, and time. She appears well- developed and well-nourished. HENT: Head: Normocephalic and atraumatic. Eyes: Conjunctivae are normal. No scleral icterus. Cardiovascular: Normal rate and regular rhythm. Pulmonary/Chest: Effort normal and breath sounds normal. Abdominal: Soft. There is no tenderness. Musculoskeletal: She exhibits tenderness. She exhibits no edema. Neurological: She is alert and oriented to person, place, and time. She has normal strength. Skin: Skin is warm and dry. Procedures MDM 34-year-old female with slip and fall resulting in back pain and tenderness. No neurologic deficits.No evidence of significant injury elsewhere. I reviewed the CT of her thorax and lumbar contemporaneously and see no acute fracture. She had adequate pain relief in the emergency department with by mouth hydromorphone. She is appropriate for discharge with decreased activity temporarily, pain medication, precautions for which to return, and recommended PCP followup Michael Casey MD 01/05/15 2238 documented in this encounter Miscellaneous Notes ED Triage - Mercy Nieto RN - 01/05/2015 2:13 PM EST Pt slipped and fell 40 minutes ago while walking down 3 steps landing on her back. C/o pain post head and thoracic spine which is constantly 9/10 with 10/10 spasms. Pain increases across her scapula when she lifts either arm. Denies neck pain or c-spine tenderness. Denies LOC It knocked the wind out of me. She is more comfortable standing then sitting. A+O PWD documented in this encounter Plan of Treatment Not on filedocumented as of this encounter Procedures Procedure Name Priority Date/Time Associated Diagnosis Comme nts CT LUMBAR SPINE WWO STAT 01/05/2015 5:54 PM Re sults for this CONTRAST EST procedure are i n the results section. CT THORACIC SPINE STAT 01/05/2015 5:54 PM Resu lts for this WO CONTRAST EST procedure are i n the results section. POCT URINE STAT 01/05/2015 Results for thi s procedure are i n the results section. documented in this encounter Results CT lumbar spine WO contrast (01/05/2015 5:54 PM EST) Anatomical Region Laterality Modality L-spine Computed Tomography Specimen (Source) Anatomical Collection Method Collection Time Re ceived Time Location / / Volume Laterality 01/05/2015 5:54 PM EST Impressions 01/05/2015 7:32 PM EST IMPRESSION: No lumbar spine fracture or subluxation. This report was reviewed by JC AMOR at 01/05/2015 7:27 PM Film and interpretation reviewed by the attending Narrative 01/05/2015 7:32 PM EST EXAMINATION: CT Lumbar Spine Without Contrast CLINICAL HISTORY: fall; mid/lower L spin e ttp TECHNIQUE: Helical images of the lumbar spine were performed. Multiplanar reformatted images reviewed. COMPARISON: None FINDINGS: There are five nonrib lumbar v ertebra. Alignment is normal. Vertebral body heights and disc space heights are maintained. No fracture or subluxation. Bilateral SI joint arthropathy present w ith marginal anterior osteophytosis and subchondral sclerosis. Procedure Note Jc Amor MD - 01/05/2015Formatti ng of this note might be different from the original. EXAMINATION: CT Lumbar Spine Without Con trast CLINICAL HISTORY: fall; mid/lower L spin e ttp TECHNIQUE: Helical images of the lumbar spine were performed. Multiplanar reformatted images reviewed. COMPARISON: None FINDINGS: There are five nonrib lumbar v ertebra. Alignment is normal. Vertebral body heights and disc space heights are maintained. No fracture or subluxation. Bilateral SI joint arthropathy present w ith marginal anterior osteophytosis and subchondral sclerosis. IMPRESSION IMPRESSION: No lumbar spine fracture or subluxation. This report was reviewed by JC AMOR at 01/05/2015 7:27 PM Film and interpretation reviewed by the attending Michael Casey MD IMG CT ORDERABLES CT thoracic spine WO contrast (01/05/2015 5:54 PM EST) Anatomical Region Laterality Modality T-spine Computed Tomography Specimen (Source) Anatomical Collection Method Collection Time Re ceived Time Location / / Volume Laterality 01/05/2015 5:54 PM EST Impressions 01/05/2015 7:30 PM EST IMPRESSION: No acute fracture or subluxation of the thoracic spine. 5 mm pulmonary nodule in the posterior a spect of the right upper lobe. The guidelines recommend a follow-up CT scan chest in 6-12 months. This report was reviewed by JC AMOR at 01/05/2015 7:24 PM Film and interpretation reviewed by the attending Narrative 01/05/2015 7:30 PM EST EXAMINATION: CT Thoracic Spine Without Contrast CLINICAL HISTORY: fall mid/lower thoraci c pain and tenderness TECHNIQUE: Unenhanced helical images of the thoracic spine are performed. Multiplanar reformatted images were revi ewed. COMPARISON: None FINDINGS: There is mild convex curvature of the thoracic spine. Vertebral body heights and disc space heights are maint ained. Mild degenerative changes characterized by multilevel anterior ost eophytes. No fracture or subluxation. Several sclerotic foci most consistent w ith bone islands. Nonspecific 5 mm pulmonary nodule present within the post erior aspect of the right upper lobe. Procedure Note Jc Amor MD - 01/05/2015Formatti ng of this note might be different from the original. EXAMINATION: CT Thoracic Spine Without C ontrast CLINICAL HISTORY: fall mid/lower thoraci c pain and tenderness TECHNIQUE: Unenhanced helical images of the thoracic spine are performed. Multiplanar reformatted images were revi ewed. COMPARISON: None FINDINGS: There is mild convex curvature of the thoracic spine. Vertebral body heights and disc space heights are maint ained. Mild degenerative changes characterized by multilevel anterior ost eophytes. No fracture or subluxation. Several sclerotic foci most consistent w ith bone islands. Nonspecific 5 mm pulmonary nodule present within the post erior aspect of the right upper lobe. IMPRESSION IMPRESSION: No acute fracture or subluxation of the thoracic spine. 5 mm pulmonary nodule in the posterior a spect of the right upper lobe. The guidelines recommend a follow-up CT scan chest in 6-12 months. This report was reviewed by JC AMOR at 01/05/2015 7:24 PM Film and interpretation reviewed by the attending Michael Casey MD IMG CT ORDERABLES POCT urine (01/05/2015) Patholo gist Method Time Signature POC Urine HCG Negative Negative - Negative POC Control Internal Controls Acceptable Specimen (Source) Anatomical Location Collection Method / Collectio n Time Received Time / Laterality Volume 01/05/2015 Michael Casey MD POINT OF CARE TEST ORDERABLE S documented in this encounter Visit Diagnoses Diagnosis Back contusion, unspecified laterality, initial encounter documented in this encounter Administered Medications Inactive Administered Medications - up to 3 most recent administrations Medication Order MAR Action Action Date Dose Rate Site HYDROmorphone (DILAUDID) tablet 4 mg Given 01/05/2015 8:02 PM EST 4 mg 4 mg, Oral, ONCE, 1 dose, On 01/05/15 at 2001, STAT oxyCODONE (ROXICODONE) immediate release Given 01/05/2015 4:48 P M EST 10 mg tablet 10 mg 10 mg, Oral, ONCE, 1 dose, On 01/05/15 at 1648, STAT documented in this encounter Active and Recently Administered Medications Times are shown in EST. Scheduled Medication Order 01/03/2015 01/04/2015 01/05/2015 HYDROmorphone (DILAUDID) tablet 4 mg (COMPLETED) 2001 (Given - Provider: Dwight Salamanca, PHUONG) 4 mg, Oral, ONCE, 1 dose, 01/05/15 at 2001, STAT oxyCODONE (ROXICODONE) immediate release tablet 10 mg (COMPLETED ) 1647 (Given - Provider: Gil Kingsley, PHUONG) 10 mg, Oral, ONCE, 1 dose, 01/05/15 at 1648, STAT documented in this encounter Care Teams Roving Carrier Relationship Specialty Start Date End Date Hortencia Lan MD PCP - General 07/22/14 04/24/17 [address] [place] [address] documented as of this encounter
--- OUTSIDE RECORDS SUMMARY | 2022-07-23 01:22 | XMS_ITS | Encounter Summary ---
:1980 Author Organization [employer] Address [address] [place] [address] Care Team Providers Name Role Phone Isidro Weinstein MD Primary Care Provider [phone] Reason for Visit Reason Comments Establish Care Weight managment Consultation (Routine) - Closed Specialty Diagnoses / Procedures Referred By Contact Refer red To Contact Weight and Wellness Diagnoses Obesity, unspecified obesity Stefanie Trejo, H[facility] Weight Wellness Procedures pre-bariatric patient needs to have diet and psych counseling per insurance requirements pt needs 3 months of diet counseling and ongoing until surgery [employer] [address] [facility] [address] [place], [place] GENERAL SURGERY [id number] [place] [address] Referral ID Status Reason Start Date Expiration Date Visits V isits Requested Authorized [id number] Closed Consult, 01/27/2021 01/27/2022 1 1 Test & Treat Encounter Details Date Type Department Care Team Description 03/25/2021 Office Visit Weight and Wellness Esther Watters, Insu katja resistance; at [facility] [employer]PER[employer]OR [employer]PECTION DE[employer]MENT Pre-bariatric surgery nutrition evaluati on; [address] [facility] Class 3 severe obesity due t o excess calories without serious comorbidity with body mass index (BMI) of 50.0 to 59.9 in adult; [place], [place] Menorrhagia with regular cycle; [facility] Fatigue, unspecified type; [phone] MEDICINE Encounter for pre-bariatric surgery coun seling and education [place], [place] [address] Social History Tobacco Use Types Packs/Day Years [...] Pulse 102 03/25/2021 9:48 AM EDT Temperature - - Respiratory Rate 18 03/25/2021 9:48 AM EDT Oxygen Saturation 100% 03/25/2021 9:48 AM EDT Inhaled Oxygen Concentration - - Weight 150.3 kg (331 lb 6.4 oz) 03/25/2021 9:48 AM EDT Height 163.2 cm (5' 4.25) 03/25/2021 9:48 AM EDT Body Mass Index 56.44 03/25/2021 9:48 AM EDT documented in this encounter Patient Instructions Patient InstructionsEsther Watters APRN - 03/25/2021 10:00 AM EDT From our visit today: It was great to meet you! Below are the goals we talked about. Let me know if you have any questions or need anything! Goals Addressed This Visit's Progress ??? food choices/meal timing/ bariatric behaviors ?? [...] times a week -can use therabands ??? sleep ?? Follow up with sleep medicine at [facility] to resume treating sleep apnea Goal 7 hours of sleep nightly. ?? Recommend consistent sleep and wake times, avoid electronics within one hour of sleep time Medications 03/25/21 1106 Medication Sig Taking? dextroamphetamine-amphetamine (ADDERALL) 20 mg Tablet Take 20 mg by mouth Daily. Yes levothyroxine (Synthroid) 100 mcg Tablet Take by mouth. Yes loratadine (Claritin) 10 mg Tablet Take by mouth. Yes albuterol (PROVENTIL HFA;VENTOLIN HFA) 90 mcg/Actuation inhaler Yes documented in this encounter Progress Notes Esther Watters APRN - 03/25/2021 10:00 AM EDT [facility] Patient Name: Jaki Cardoso Date of : 1980 Age: 40 y.o. Referring provider: Stefanie Trejo Dear Isidro Weinstein MD, Thank you for referring Jaki Cardoso to the [facility] for a consultation for obesity management. I reviewed past records including notes, labs, and other evaluations as reviewed below. I have briefly summarized the visit below. I look forward to collaborating with you, and to thatend, I will make medication adjustments as appropriate based on the patient's ongoing state of health. Medications that I often manage include, but are not limited to, anti-obesity meds, diabetic medications and anti-hypertensives, and any adjustments I make will be communicated to you to maintain seamless care. Thank you again for allowing the [facility] to join Jaki's healthcare team. SUMMARY OF VISIT: Jaki Cardoso presented to the [facility] for a consultative visit regarding obesity management. The patient has WHO Class 3 / EOSS Stage 2 Obesity defined by a BMI of Body mass index is 56.44 kg/m??. and comorbidities: Anxiety, Back pain, Depression, EDWIGE-untreated and Thyroid dz, et al as below. I spent a total of 80 minutes with the patient of which 65 minutes were spent in [id number] discussion/counseling regarding the diagnosis of obesity, interventions for treatment, and obesity related co-morbidities. OBESITY We discussed and agreed upon the pillars of obesity treatment and goal setting based upon SMART goals. Discussed that 5-10% weight loss can improve patient's co-morbidities; Goal weight loss 33 pounds over 3-6 months Pharmocotherapy: Discussion of antiobesity medications started If possible, medications that promote weight gain should be avoided and medications that are weight-neutral or promote weight loss should be considered. Obesogenic medications: none Lifestyle changes reviewed and planned: Discussion : Pillars/SMART goals Nutrition: whole food/quality diet/more plant based, lower carb diet, refer to RD for planning/education, decrease eating window. Avoid snacking, avoid drinking sugar, read labels Activity: Deferred in depth discussion, provided Resistance bands and booklet with exercises Behavioral changes: mindful eating, meal planning Accountability: begin food log, continue regular weights Sleep: treatment of sleep apnea, consistent bed times Stress: consider counseling regularly Referrals: [x]Nutrition [x]Health conditioning coach []Sleep medicine []Bariatric surgery []GI []Behavioral health []ACT group [] HLP []Research coordinator CHIEF COMPLAINT: Management of excess weight She has had failure to sustain weight loss by medical management, is aware of non-surgical methods at weight loss, and meets the criteria proposed by the NIH Consensus Guidelines for surgical treatmentof severe obesity. ?? Patient has decided on pursuing bariatric surgery ?? Jaki was advised that weight loss from bariatric surgery depends on ability to eat a healthy diet shelter after surgery. She is aware of our programmatic multi-disciplinary approach which includes two bariatric surgeons, as well as dietitians and obesity medicine specialist. She was advised that the final decision for procedure is made by the surgeon with input from the patient and team. Prospective patients are encouraged to thoroughly research bariatric surgery with [facility] website. Bariatric Surgery Program Requirements and further recommendations: [x] Attended bariatric information session 03/13/21 [x] Bariatric Pathway initiated [] Dr. Mosquera [] Dr. Mazariegos [] Bypass [] Gastric sleeve [] UGI [] EGD [x] VTE risk Bariatric Surgery VTE Risk Assessment Score Patients will be considered to be at high risk if they have one or more of the following: Previous VTE or BMI >/= 60 kg/m2 Or two or more of the following: X x Age > 50 BMI >/= 50 kg/m2 Male sex Recent tobacco use Obstructive sleep apnea Venous insufficiency/ varicose veins OCP or HRT within 30 days of surgery Enoxaparin is indicated s/p bariatric surgery [x] Note for medical necessity submitted to insurance [x] f/u 2 months [x] Labs ordered [] Labs reviewed - reports had lipids recently No results for input(s): HA1C in the last 7068 hours. [x] A1C <8 [] A1c>8 [] Gallbladder removed [x] gallbladder intact [] Cardiac Clearance needed [] Cardiac clearance reviewed [x] using C pap [] Psych consult -will be put on waiting list for evaluation now [x] RD Stage 2 Education scheduled [] RD note reviewed [] Starting weight to be determined [] Patient ready for second half of program, schedule Surgical RD and Surgeon visit [x] Given the association of obesity with cancer, all age appropriate cancer screenings should be UTD Patients are advised to stop HRT and OCP/ DMPA 1 month prior to surgery and hold for 1 month post op, and use control during this time if appropriate HISTORY OF PRESENT ILLNESS: Weight History: [facility] Weight History 03/25/2021 What is the most you have ever weighed? 347 How old were you then? 40 How many times have you lost 10 pounds or more because you were trying to lose weight? Was it... 3 to 5 How did you try to lose weight? Ate less food, Skipped meals, Drank a lot of water Jaki Mccarty is here today because: she wants to lose weight, pursuing bariatric surgery. Weight hx: Duration: always been big, my mom and grandma were heavy Awareness: has a good understanding of risk of obesity Impact on life: hard to do things, gets tired easily Peak weight: 347 Initial weight 03/25/21: 331 Goal weight: 200-220 10% loss: 33 lbs Other goals: wants to be more active with her daughter be healthy Prior treatment/attempts to lose: Successful attempts in the past: over the past few weeks she has been cutting down and her weight isdown 13lbs AOM HX: on metformin but not tolerating, is stopping Hx metabolic surgery: no Jaki Cardoso has had gradual weight gain due to: emotional eating, poor food choices, genetics Why is now the time to try again? Tired of being heavy Barriers to success: emotional eating, having food available WWC Importance 03/25/2021 How important is it to you to make a change to improve your health? 10 - Very Important How confident are you that you can make a change to improve your health? 10 - Very Confident Obesogenic medications: none Obesity related co-morbidities: Past Medical History 03/25/2021 Have you had any of the following medical problems? 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 Yes, but doesn't treat, can't tolerate C pap - managed at [facility], sleep study about 4 years ago- will follow []S []T []O []P []B []A []N []G: [place] Sleep Apnea 03/25/2021 Please choose the correct response to each of the following questions. Do you snore? Don't know Has anyone noticed that you quit breathing during your sleep? Never or nearly never How often do you feel tired or fatigued after your sleep? Never or nearly never During your waking time, do you feel tired, fatigued or not up to par? Nearly every day Have you ever nodded off or fallen asleep while driving a vehicle? No Do you have high blood pressure? No [place] Category I 0 (Negative) [place] Category I Result 0 (Negative) [place] Category 2 1 (Negative) [place] Category II Result 0 (Negative) [place] Category 3 0 (Negative) [place] Sleep Apnea Result 0 (Low Risk) Food Behaviors In your opinion do you eat a healthy diet? Overall yes, now Has been working on cutting back on portions, cutting down on refined carbohydrates, avoiding chips,cookies Appetite: relatively low Satiety: yes Eating out of: [x]Hunger [x]Habit []It's time. []Boredom [x]Emotions Eating patterns: [x] Mindless eating [] binge eating [] Grazing [] skips meals [] Night eating Breakfast: not hungry in the morning- sometimes has Boost)- today had a bagel though knows not the best choice Snack: nuts (almonds, pecans and cashews) or nut clusters or sometimes dried cranberries Lunch: sometimes will get a sous chef salad with hard boiled egg Snack: being more mindful of choices, planning snacks rather than reaching for processed snacks Dinner: plain hamburger with no bun Fluids: 64 oz water, sometimes adds lemon, sometimes coffee (gets a large coffee with 6 creams and 6liquid sugar) working on cutting down Movement: [facility]: [place] 03/25/2021 How many days during the past week have you performed physical activity where your heart beats faster and your breathing is harder than normal for 30 minutes or more? 2 How many days in a typical week do you perform an activity such as this? 2 Is ambulation limited most or all of the time? Some by back pain but working on moving more around the house, mowing- Tolerance: she can climb a flight of stairs Purposeful exercise now? Resistance training: [ ] times per week x [ ]minutes CV exercise: [ ] times per week x [ ] minutes Activity enjoyed in past? NEAT? Stress Management: Not really anything right now Accountability: [] Daily or weekly weights [] Food log/gurwinder [] Other [x] None currently REVIEW OF SYSTEMS: 10 systems reviewed, positives as below Review of Systems Constitutional: Positive for fatigue. Sometimes fatigued, doesn't sleep much HENT: Positive for postnasal drip. Allergies Eyes: Negative. Respiratory: Positive for apnea. Sleep apnea, not currently treating Cardiovascular: Negative. Gastrointestinal: Positive for constipation. Sometimes goes as much as 5 days with no BM Has been improving with diet changes Endocrine: Negative. Genitourinary: Positive for menstrual problem. Heavy, cramping, lasts a long time Musculoskeletal: Positive for back pain. Skin: Negative. Allergic/Immunologic: Positive for environmental allergies. Neurological: Negative. Hematological: Negative. Psychiatric/Behavioral: Anxiety/depression Review of Systems 03/25/2021 Have you recently experienced any of the following symptoms? Heavy periods, Anxiety, Depression WW PHQ-2 03/25/2021 Over the LAST 2 WEEKS, how often have you been bothered by little interest or pleasure in doing things? Several days Over the LAST 2 WEEKS, how often have you been bothered by feeling down, depressed, or hopeless? Several days PHQ-2 Score 2 (Brief screen negative) WCCGAD2 03/25/2021 Over the LAST 2 WEEKS, how often have you been bothered by feeling nervous, anxious or on edge? Several days Over the LAST 2 WEEKS, how often have you been bothered by not being able to stop or control worrying? Several days GAD2 Subscore 2 (Brief screen negative) MEDICAL HISTORY Medical and Surgical History: Reviewed. Past Medical History: Diagnosis Date ??? Foot pain 05/08/2012 ??? Fungal dermatitis 05/08/2012 Gynecologic: using/taking reliable contraception ? No, wouldn't mind a , reviewed importance of reliable contraception to prevent after bariatric surgery, delay of after surgery. Family History: Reviewed. Family History 03/25/2021 Do any of these medical conditions run in your family? Type 2 diabetes Family History Problem (# of Occurrences) Relation (Name,Age of Onset) Skin Cancer (1) Mother: melanoma right paranasal area Social History: Reviewed. 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 Never How many standard drinks containing alcohol do you have on a typical day? 0 drinks How often do you have six or more drinks on one occasion? Never VITAL SIGNS: Vitals: 03/25/21 0948 BP: 146/75 BP Location (NBP): Right arm Patient Position: Sitting BP Cuff Sizes: Large Adult (32-43 cm) Pulse: (!) 102 Resp: 18 SpO2: 100% Weight: (!) 150.3 kg (331 lb 6.4 oz) Height: 163.2 cm (5' 4.25) Last 5 weight values: Wt Readings from Last 5 Encounters: 03/25/21 (!) 150.3 kg (331 lb 6.4 oz) PHYSICAL EXAM: Gen: 40 y.o. year old female with obesity who appears stated age. NAD. Body fat distribution- predominantly central. Appearance: appropriate, well-kempt HENT: Atruamatic, MMM, OP clear and narrow, Mallampati grade 4/4 Neck: supple and thick, no thyromegaly/thyroid nodules palpated, no buffalo hump CV: RRR, S1S2 distinct, no extra sounds or murmur, RRR Resp: Clear to auscultation all lobes, effort minimal, pattern regular Abd: +BS, soft, NT/ND, no HSM/masses, no scars, grade 2 Pannus Extremities: + pitting LE edema, pulses present Gait: normal, walks into exam room unassisted Skin: + Acanthosis nigricans, -acne, +hirsut,+ skin tags, -intertrigo, -rashes,- purple abdominal striae, -induration. Warm and dry. Integrity intact Psych: pleasant, conversant and engaged, normal affect, cognition and mood. PREVIOUS LABS AND IMAGING: Reviewed Last CBC Lab Results Component Value Date WBC 12.09 (ExtH) 04/28/2020 RBC 4.54 (External Lab) 04/28/2020 HGB 11.3 (ExtL) 04/28/2020 HCT 36.3 (External Lab) 04/28/2020 MCV 80.0 (External Lab) 04/28/2020 MCH 24.9 (ExtL) 04/28/2020 MCHC 31.1 (ExtL) 04/28/2020 PLATELET 351 (External Lab) 04/28/2020 RDWCV 15.6 (ExtH) 04/28/2020 Last CMP Lab Results Component Value Date NA 139 05/08/2012 K 3.5 05/08/2012 CL 108 (H) 05/08/2012 CO2 26 05/08/2012 BUN 11 05/08/2012 CREATININE 0.64 (L) 05/08/2012 GLUCOSE 96 05/08/2012 ESTGFR >60 05/08/2012 No results found for: ALT, AST, GGT, ALKPHOS, BILITOT, BILIDIR, ALBUMIN, PROT Lipid Panel Lab Results Component Value Date CHLPL 173 (External Lab) 01/10/2008 HDL 35.1 (External Lab) 01/10/2008 CHOLHDL 4.9 (ExtH) 01/10/2008 TRIG 60 (External Lab) 01/10/2008 Last 3 Hemoglobin A1Cs No results found for: HA1C Latest TSH No results found for: TSH No results found for: LABINSU No results found for: GLUCFASTING No results found for: FERRITIN No results found for: [id number] No results found for: 25OHVITD ASSESSMENT AND PLAN Jaki Cardoso is a 40 y.o. female with uncontrolled obesity who presented to [facility] today for medical evaluation. Jaki was seen today for establish care. Diagnoses and all orders for this visit: Insulin resistance - POCT glycated hemoglobin, total (HA1C) - Ferritin; Future - Iron and TIBC; Future - Vitamin D, 25-Hydroxy; Future - TSH; Future - Folate, serum; Future - Vitamin B12; Future - CBC (with Diff); Future - Vitamin B1, whole blood; Future - Comprehensive metabolic panel (non-fasting); Future - Comprehensive metabolic panel (non-fasting) - Vitamin B1, whole blood - CBC (with Diff) - Vitamin B12 - Folate, serum - TSH - Vitamin D, 25-Hydroxy - Iron and TIBC - Ferritin Pre-bariatric surgery nutrition evaluation - Ferritin; Future - Iron and TIBC; Future - Vitamin D, 25-Hydroxy; Future - TSH; Future - Folate, serum; Future - Vitamin B12; Future - CBC (with Diff); Future - Vitamin B1, whole blood; Future - Comprehensive metabolic panel (non-fasting); Future - Comprehensive metabolic panel (non-fasting) - Vitamin B1, whole blood - CBC (with Diff) - Vitamin B12 - Folate, serum - TSH - Vitamin D, 25-Hydroxy - Iron and TIBC - Ferritin Class 3 severe obesity due to excess calories without serious comorbidity with body mass index (BMI)of 50.0 to 59.9 in adult - POCT glycated hemoglobin, total (HA1C) - Ferritin; Future - Iron and TIBC; Future - Vitamin D, 25-Hydroxy; Future - TSH; Future - Folate, serum; Future - Vitamin B12; Future - CBC (with Diff); Future - Vitamin B1, whole blood; Future - Comprehensive metabolic panel (non-fasting); Future - Comprehensive metabolic panel (non-fasting) - Vitamin B1, whole blood - CBC (with Diff) - Vitamin B12 - Folate, serum - TSH - Vitamin D, 25-Hydroxy - Iron and TIBC - Ferritin Menorrhagia with regular cycle - Ferritin; Future - Iron and TIBC; Future - Vitamin D, 25-Hydroxy; Future - TSH; Future - Folate, serum; Future - Vitamin B12; Future - CBC (with Diff); Future - Vitamin B1, whole blood; Future - Comprehensive metabolic panel (non-fasting); Future - Comprehensive metabolic panel (non-fasting) - Vitamin B1, whole blood - CBC (with Diff) - Vitamin B12 - Folate, serum - TSH - Vitamin D, 25-Hydroxy - Iron and TIBC - Ferritin Fatigue, unspecified type - Ferritin; Future - Iron and TIBC; Future - Vitamin D, 25-Hydroxy; Future - TSH; Future - Folate, serum; Future - Vitamin B12; Future - CBC (with Diff); Future - Vitamin B1, whole blood; Future - Comprehensive metabolic panel (non-fasting); Future - Comprehensive metabolic panel (non-fasting) - Vitamin B1, whole blood - CBC (with Diff) - Vitamin B12 - Folate, serum - TSH - Vitamin D, 25-Hydroxy - Iron and TIBC - Ferritin Encounter for pre-bariatric surgery counseling and education Goals Addressed This Visit's Progress ??? food choices/meal timing/ bariatric behaviors ?? [...] times a week -can use therabands ??? sleep ?? Follow up with sleep medicine at [facility] to resume treating sleep apnea Goal 7 hours of sleep nightly. ?? Recommend consistent sleep and wake times, avoid electronics within one hour of sleep time Care pathway: Pathway: [facility] PATHWAY - ADULT 03/25/2021 Bariatric Surgery Activate Return in about 8 weeks (around 05/20/2021) for REGISTERED [employer]AND SURVEYOR, clinic, RD, Bariatric, April,. I did not speak with Jaki about opportunities to participate in research and to be contacted by our research psychologist research assistant. They indicated that they are: [] INTERESTED [] NOT INTERESTED // [x] NOT ADDRESSED [facility] Initial Responses 03/25/2021 URICA - Readiness Score 12 (Preparation State) WEL-SF Total Scores 48 PHQ-2 SubScore 2 (Brief screen negative) GAD2 Subscore 2 (Brief screen negative) PROMIS 10 Physical Scores 34.9 PROMIS 10 Mental Scores 41.1 Total REAP-S Scores 32 TFEQ - Uncontrolled Eating (UE) 44.44 TFEQ-Cognitive Restraint (CR) 77.77 TFEQ-Emotional Eating 38.88 Food Insecurity Score 2 [place] Category I Result 0 (Negative) [place] Category II Result 0 (Negative) [place] Category III 0 (Negative) [place] Sleep Apnea Total 0 (Low Risk) Schooling Graduated from high school or GED Importance of making a change 10 - Very Important Confidence to make change 10 - Very Confident Most weighed 347 Age most weighed 40 Times lost 10 lbs or more 3 to 5 Lost weight how? Ate less food, Skipped meals, Drank a lot of water Worried food would run out before we got money to buy more Never true Food didnt last; no money to get more Never true URICA: <8 Precontemp, 8-12 Contemp, 12+ Prep TFEQ: Look at transformed scores, average is 50, +/-2SD is sigfnif, consider referral >70 WEL-SF: Range 0-80, higher = better PROMIS Avg score = 50 REAP score 13-39, higher = more diversity in diet, better documented in this encounter Plan of Treatment Not on filedocumented as of this encounter Goals Goal Patient Goal Associated Recent Patient-Stated? Author Type Problems Progress food Lifestyle No svetlana Watters/monae Vargas/ BETHANY bariatric behaviors Note: Formatting of this note [...] eatin g episode sleep Lifestyle No Esther Watters, BETHANY Note: Formatting of this note might be d ifferent from the original. Follow up with sleep medicine at [facility] t o resume treating sleep apnea Goal [...] Date/Time Associated Diagnosis Comme nts HEMOGRAM Routine 03/25/2021 11:57 Insulin resista nce Results for this AM EDT Class 3 severe procedure are in obesity due to the results excess calories section. without serious comorbidity with body mass index (BMI) of 50.0 to 59.9 in adult Pre-bariatric surgery nutrition evaluation Menorrhagia with regular cycle Fatigue, unspecified type DIFFERENTIAL, Routine 03/25/2021 11:57 Insulin resista nce Results for this AUTOMATED AM EDT Class 3 severe procedure are in obesity due to the results excess calories section. without serious comorbidity with body mass index (BMI) of 50.0 to 59.9 in adult Pre-bariatric surgery nutrition evaluation Menorrhagia with regular cycle Fatigue, unspecified type HC [facility] THIAMIN Routine 03/25/2021 11:57 Insulin resista nce Results for this LVL(VITAMIN B1) AM EDT Class 3 severe procedure are in [facility] obesity due to the results excess calories section. without serious comorbidity with body mass index (BMI) of 50.0 to 59.9 in adult Pre-bariatric surgery nutrition evaluation Menorrhagia with regular cycle Fatigue, unspecified type HC IRON BINDING Routine 03/25/2021 11:57 Insulin resista nce Results for this CAPACITY AM EDT Class 3 severe procedure are in obesity due to the results excess calories section. without serious comorbidity with body mass index (BMI) of 50.0 to 59.9 in adult Pre-bariatric surgery nutrition evaluation Menorrhagia with regular cycle Fatigue, unspecified type HC VITAMIN D TOTAL-25 Routine 03/25/2021 11:57 Insulin r esistance Results for this HYDROXY AM EDT Class 3 severe procedure are in obesity due to the results excess calories section. without serious comorbidity with body mass index (BMI) of 50.0 to 59.9 in adult Pre-bariatric surgery nutrition evaluation Menorrhagia with regular cycle Fatigue, unspecified type HC CBC,PLT & AUTO Routine 03/25/2021 11:57 Insulin resis tance DIFF AM EDT Class 3 severe obesity due to excess calories without serious comorbidity with body mass index (BMI) of 50.0 to 59.9 in adult Pre-bariatric surgery nutrition evaluation Menorrhagia with regular cycle Fatigue, unspecified type HC THYROID Routine 03/25/2021 11:57 Insulin resista nce Results for this STIMULATING HORMONE, AM EDT Class 3 severe proce dure are in SERUM obesity due to the results excess calories section. without serious comorbidity with body mass index (BMI) of 50.0 to 59.9 in adult Pre-bariatric surgery nutrition evaluation Menorrhagia with regular cycle Fatigue, unspecified type HC FOLATE, SERUM Routine 03/25/2021 11:57 Insulin resist ance Results for this AM EDT Class 3 severe procedure are in obesity due to the results excess calories section. without serious comorbidity with body mass index (BMI) of 50.0 to 59.9 in adult Pre-bariatric surgery nutrition evaluation Menorrhagia with regular cycle Fatigue, unspecified type HC FERRITIN, SERUM Routine 03/25/2021 11:57 Insulin resi stance Results for this AM EDT Class 3 severe procedure are in obesity due to the results excess calories section. without serious comorbidity with body mass index (BMI) of 50.0 to 59.9 in adult Pre-bariatric surgery nutrition evaluation Menorrhagia with regular cycle Fatigue, unspecified type HC VITAMIN B12 SERUM Routine 03/25/2021 11:57 Insulin re sistance Results for this AM EDT Class 3 severe procedure are in obesity due to the results excess calories section. without serious comorbidity with body mass index (BMI) of 50.0 to 59.9 in adult Pre-bariatric surgery nutrition evaluation Menorrhagia with regular cycle Fatigue, unspecified type HC VENIPUNCTURE Routine 03/25/2021 11:57 Insulin resista nce Results for this AM EDT Class 3 severe procedure are in obesity due to the results excess calories section. without serious comorbidity with body mass index (BMI) of 50.0 to 59.9 in adult Pre-bariatric surgery nutrition evaluation Menorrhagia with regular cycle Fatigue, unspecified type POCT GLYCATED Routine 03/25/2021 11:11 Insulin resista nce Results for this HEMOGLOBIN, TOTAL AM EDT Class 3 severe procedur e are in (HA1C) obesity due to the results excess calories section. without serious comorbidity with body mass index (BMI) of 50.0 to 59.9 in adult documented in this encounter Results (ABNORMAL) Differential, Automated (03/25/2021 11:57 AM EDT) P athologist Signature Neutrophils % 56.4 % [facility] Neutr Abs (ANC) 5.11 1.70 - [facility] 6.10 [facility] x10(3)/[facility] LABORATORY Lymphocytes % 32.0 % [facility] Lymphocytes Abs 2.9 0.9 - 3.2 [facility] x10(3)/[facility] LABORATORY Monocytes % 7.5 % [facility] Monocyte Abs 0.7 0.3 - 0.9 [facility] x10(3)/[facility] LABORATORY Eosinophils % 2.7 % [facility] Eosinophils Abs 0.2 0.0 - 0.4 [facility] x10(3)/[facility] LABORATORY Basophils % 0.8 % [facility] Basophils Abs 0.1 0.0 - 0.1 [facility] x10(3)/[facility] LABORATORY Immature Gran % 0.60 % [facility] Comment: Immature granulocytes(IG's)percentage an d absolute count will include metamyelocytes, myelocytes, and promyelo cytes. Blood smears from CBCs yielding IG's will be scanned manually for concor dance. If this scan disagrees with the automated IG or if promyelocytes are not ed, a manual differential will be performed. Sarai Gran Abs 0.05 (H) 0.00 - 0.04 x10(3)/[facility] LABORATORY Specimen Anatomical Collection Method Collection Time Receive d Time (Source) Location / / Volume Laterality Blood 03/25/2021 11:57 03/25/2021 AM EDT 12:46 PM EDT Resulting Agency Comment Spec In Lab Esther Watters APRN HEMATOLOGY ORDERABLES Performing Organization Address City/State/[place] [address] (ABNORMAL) Hemogram (03/25/2021 11:57 AM EDT) Analysis Performed At Patho logist Time Signature WBC 9.0 4.0 - 9.5 [facility] x10(3)/[facility] LABORATORY RBC 4.73 4.00 - [facility] 5.21 [facility] x10(6)/[facility] LABORATORY Hemoglobin 11.0 (L) 11.7 - [facility] 15.5 gm/dL [facility] Hematocrit 37.0 35.7 - [facility] 45.8 % [facility] MCV 78.2 (L) 82.6 - [facility] 94.4 [facility] LABORATORY MCH 23.3 (L) 27.1 - [facility] 32.0 pg [facility] MCHC 29.7 (L) 31.7 - [facility] 35.[facility] gm/dL [facility] Platelets 355 145 - 357 [facility] x10(3)/[facility] LABORATORY RDWSD 43.6 37.0 - [facility] 46.0 [facility] LABORATORY RDWCV 15.3 (H) 11.5 - [facility] 14.1 % [facility] MPV 9.9 7.6 - 12.9 [facility] LABORATORY nRBC % Auto 0.0 % [facility] nRBC Abs Auto 0.000 0.000 - [facility] 0.000 [facility] x10(3)/[facility] LABORATORY Specimen Anatomical Collection Method Collection Time Receive d Time (Source) Location / / Volume Laterality Blood 03/25/2021 11:57 03/25/2021 AM EDT 12:46 PM EDT Resulting Agency Comment Spec In Lab Esther Watters BETHANY HEMATOLOGY ORDERABLES Performing Organization Address City/State/[place] [address] (ABNORMAL) Comprehensive metabolic panel (non-fasting) (03/25/2021 11:57 AM EDT) athologist Signature Glucose Lvl 115 65 - 199 [facility] mg/dL [facility] Comment: Diabetes: >=200 mg/dL plus symp toms BUN 11 8 - 18 mg/dL [facility] Creatinine 0.59 (L) 0.70 - 1.20 mg/dL [facility] Sodium 144 135 - 145 mmol/L [facility] Potassium 4.0 3.5 - 5.0 mmol/L [facility] Comment: Please note: ??Patients with WBC >100,00 0 may have falsely elevated Potassium levels. ??For accurate Potassium quantif ication in these patients send serum separator tube (gold top) for subsequent determinations. ??Contact the Clinical Chemistry Laboratory if there are any qu estions. Chloride 106 98 - 107 mmol/L [facility] CO2 27 22 - 31 mmol/L [facility] Anion Gap 11 5 - 15 mmol/L [facility] Calcium 9.2 8.5 - 10.5 mg/dL [facility] Total Protein 7.8 6.1 - 8.0 gm/dL [facility] Albumin 4.1 3.2 - 5.2 gm/dL [facility] AST 32 (H) 0 - 30 unit/L [facility] ALT 35 (H) 0 - 30 unit/L [facility] Alk Phos 88 35 - 105 unit/L [facility] Total Bilirubin 0.2 0.2 - 1.3 mg/dL [facility] Estimated GFR 114 >=60 mL/min/1.73 m?? [facility] Comment: This patient? s estimated glomerular filtration rate (eGFR) is between 114 mL/min/1.73 m2 (patients with less muscl e mass) and 132 mL/min/1.73 m2 (patients with more muscle mass) as dete rmined by the CKD-EPI equation. Assessment of eGFR is not appropriate wh en creatinine concentrations are rapidly changing. For clinical decisions where creatinine clearance will affect therapy, a 24-hour urine creatinine capo underwood may be advised. Assignment of CKD stage 1 - 5 for patien ts with an eGFR near the transition point between stages may be based on cli nical assessment of muscle mass and symptoms in addition to eGFR. Specimen Anatomical Collection Method Collection Time Receive d Time (Source) Location / / Volume Laterality Blood 03/25/2021 11:57 03/25/2021 3:30 AM EDT PM EDT Resulting Agency Comment Spec In Lab Esther Watters APRN CHEMISTRY ORDERABLES Performing Organization Address City/State/[place] [address] Vitamin B1, whole blood (03/25/2021 11:57 AM EDT) P athologist Signature Vit B1 Lvl WB 138 70 - 180 [facility] nmol/L [facility] Comment: ADDITIONAL INFORMATIO N This test was developed and its performa nce characteristics determined by [facility] in a manner co nsistent with CLIA requirements. This test has not been leon ared or approved by the U.S. Food and Drug Administration. Test Performed by: [facility] [address] [place] [address] [phone] Steel Shot Header Operator: Basilio Murphy M.D. Ph. D.; CLIA# [id number] Specimen Anatomical Collection Method Collection Time Receive d Time (Source) Location / / Volume Laterality Blood 03/25/2021 11:57 03/25/2021 4:18 AM EDT PM EDT Resulting Agency Comment Spec In Lab Esther Chang Duong SUPERVISOR INSPECTION DEPARTMENT CHEMISTRY ORDERABLES Performing Organization Address City/State/ZIP [place] [address] Vitamin B12 (03/25/2021 11:57 AM EDT) athologist Signature Vitamin B-12 514 232 - 1,245 [facility] pg/mL [facility] Specimen Anatomical Collection Method Collection Time Receive d Time (Source) Location / / Volume Laterality Blood 03/25/2021 11:57 03/25/2021 5:13 AM EDT PM EDT Resulting Agency Comment Spec In Lab Esther Reidoie SUPERVISOR INSPECTION DEPARTMENT CHEMISTRY ORDERABLES Performing Organization Address City/[facility]/ZIP Code [place] [address] Folate, serum (03/25/2021 11:57 AM EDT) athologist Signature Folate Lvl 6.1 4.8 - 24.2 [facility] ng/mL [facility] Specimen Anatomical Collection Method Collection Time Receive d Time (Source) Location / / Volume Laterality Blood 03/25/2021 11:57 03/25/2021 5:13 AM EDT PM EDT Resulting Agency Comment Spec In Lab Esther Reidoie SUPERVISOR INSPECTION DEPARTMENT CHEMISTRY ORDERABLES Performing Organization Address City/[facility]/ZIP Code [place] [address] TSH (03/25/2021 11:57 AM EDT) athologist Signature TSH 2.10 0.27 - 4.20 [facility] mcIU/mL [facility] Specimen Anatomical Collection Method Collection Time Receive d Time (Source) Location / / Volume Laterality Blood 03/25/2021 11:57 03/25/2021 3:30 AM EDT PM EDT Resulting Agency Comment Spec In Lab Esther L Duong SUPERVISOR INSPECTION DEPARTMENT CHEMISTRY ORDERABLES Performing Organization Address City/State/ZIP [place] [address] Vitamin D, 25-Hydroxy (03/25/2021 11:57 AM EDT) Patholo gist Method Time Signature 25-OH Vit D 29 21 - 100 [facility] Total ng/mL [facility] 25-OH Vit D Insufficient [facility] LABORATORY Specimen Anatomical Collection Method Collection Time Receive d Time (Source) Location / / Volume Laterality Blood 03/25/2021 11:57 03/25/2021 5:13 AM EDT PM EDT Resulting Agency Comment Spec In Lab Esther Bernardo ReidDuong SUPERVISOR INSPECTION DEPARTMENT CHEMISTRY ORDERABLES Performing Organization Address City/[facility] Phon e Number [place] [id number] (ABNORMAL) Iron and TIBC (03/25/2021 11:57 AM EDT) athologist Signature Iron 23 (L) 30 - 150 [facility] mcg/dL [facility] TIBC 335 250 - 450 [facility] m[facility]/dL [facility] Iron Saturation 7 (L) 20 - 50 % [facility] Specimen Anatomical Collection Method Collection Time Receive d Time (Source) Location / / Volume Laterality Blood 03/25/2021 11:57 03/25/2021 3:30 AM EDT PM EDT Resulting Agency Comment Spec In Lab Estheririna Evanse SUPERVISOR INSPECTION DEPARTMENT CHEMISTRY ORDERABLES Performing Organization Address [facility] [place] [address] Ferritin (03/25/2021 11:57 AM EDT) athologist Signature Ferritin 36 15 - 150 [facility] ng/mL [facility] Comment: Pediatric reference ranges not verified at [facility], interpret with caution. Reference ranges for females greater kathryn n 50 years of age approach values for men, i.e., 30-400 ng/mL. Specimen Anatomical Collection Method Collection Time Receive d Time (Source) Location / / Volume Laterality Blood 03/25/2021 11:57 03/25/2021 5:13 AM EDT PM EDT Resulting Agency Comment Spec In Lab Esther L Duong SUPERVISOR INSPECTION DEPARTMENT CHEMISTRY ORDERABLES Performing Organization Address City/[facility]/ZIP [place] [address] (ABNORMAL) POCT glycated hemoglobin, total (HA1C) (03/25/2021 11:11 AM EDT) P athologist Signature POC HA1C 6.4 (A) 4.3 - 5.6 % Specimen (Source) Anatomical Collection Method Collection Time Re ceived Time Location / / Volume Laterality 03/25/2021 11:11 AM EDT Esther Watters APRN POINT OF CARE TEST ORDERABLE S documented in this encounter Visit Diagnoses Diagnosis Insulin resistance Dysmetabolic Syndrome X Pre-bariatric surgery nutrition evaluati on Dietary surveillance and counseling Class 3 severe obesity due to excess danie ories without serious comorbidity with body mass index (BMI) of 50.0 to 59.9 in adul t Menorrhagia with regular cycle Excessive or frequent menstruation Fatigue, unspecified type Encounter for pre-bariatric surgery coun seling and education documented in this encounter Care Teams Mental Health Counselor Relationship Specialty Start Date End Date Isidro Weinstein MD PCP - General Family Medicine 04/25/[address] [place] [address] documented as of this encounter
--- OUTSIDE RECORDS SUMMARY | 2022-07-23 01:22 | XMS_ITS | Encounter Summary ---
:1980 Author Organization [facility] [place] [address] Care Team Providers Name Role Phone Isidro Weinstein MD Primary Care Provider [phone] Encounter Details Date Type Department Care Team Description 01/10/2008 Orders Only Radiology and Cardiology Apd Conversion, Results Results Provider, [address] [place] [id number] Social History Tobacco Use Types Packs/Day Years Used Date Never Assessed Sex Assigned at Date Recorded Not on file documented as of this encounter Plan of Treatment Not on filedocumented as of this encounter Procedures Procedure Name Priority Date/Time Associated Diagnosis Comme nts LIPID PANEL (REFLEX Routine 01/10/2008 12:00 AM R esults for this DIRECT LDL) EST procedure are i n the results section. documented in this encounter Results (ABNORMAL) Lipid Panel (Reflex Direct LDL) (01/10/2008 12:00 AM EST) [facility] gist Method Time Signature Chol, Total 173 0 - 199 [facility] (External mg/dL CONVERSION Lab) Triglycerides 60 0 - 199 [facility] (External mg/dL CONVERSION Lab) HDL 35.1 29 - 89 [facility] (External mg/dL CONVERSION Lab) VLDL 12.0 mg/dL [facility] (External CONVERSION Lab) Chol/HDL Ratio 4.9 (ExtH) 3.2 - 4.4 [facility] CONVERSION Specimen (Source) Anatomical Location Collection Method / Collectio n Time Received Time / Laterality Volume 01/10/2008 Results Provider Apd Conversion CHEMISTRY ORDERABLE S Performing Organization Address City/State/ZIP Code Phon e Number [facility] CONVERSION [address] [place], [place] [address] [facility] CONVERSION documented in this encounter Visit Diagnoses Not on filedocumented in this encounter Care Teams Pen Rider Relationship Specialty Start Date End Date Isidro Weinstien MD PCP - General Family Medicine 04/25/[address] [place] [address] documented as of this encounter
--- OUTSIDE RECORDS SUMMARY | 2022-07-23 01:22 | XMS_ITS | Encounter Summary ---
:1980 Author Organization [facility] [place] [address] Care Team Providers Name Role Phone Isidro Weinstein MD Primary Care Provider [phone] Encounter Details Date Type Department Care Team Description 05/21/2021 TH Visit Weight and Wellness Tatiana Hernandes lt BMI 50.0-59.9 (TeleHealth) at [facility] L, RD kg/sq m [address] [place] [id number] Social History Tobacco Use Types Packs/Day Years Used Date Never Smoker Smokeless Tobacco: Never Used Alcohol Use Standard Drinks/Week Comments Yes 0 (1 standard drink = 0.6 oz pure alcoho l) Sex Assigned at Date Recorded Not on file documented as of this encounter Patient Instructions Patient InstructionsTatiana Hernandes, RD - 05/21/2021 9:30 AM EDT Nutrition Goals: ??? Establish meal [...] encounter Progress Notes Tatiana Hernandes RD - 05/21/2021 9:30 AM EDT Nutrition Intervention for Weight Management RD visit with Jaki Cardoso Assessment/Nutrition Diagnosis: Pt at increased nutritional risk related to excessive calorie intakeand sub optimal physical activity resulting in overweight/obesity as evidenced by BMI and diet recall : 1980 Telephone visit conducted while patient was at home at the following address: [address] [place] [id number] Food Trackers: not currently using Activity: limited activity; mowing lawn; walking outside - 2x/week, 5 minutes; no muscle building activity currently Weight Today: no new weight today Vitals 03/25/2021 Height (Honduran) 64.25 Height (Metric) 163.2 cm Weight (Honduran) 331 lbs 6 oz Weight (Metric) 150.322 kg BMI (Calculated) 56.44 kg/m2 Weight Loss History: For full account, see previous notes from this editorial writer and initial visit encounter with Weight and Wellness provider Appetite/Hunger: not hungry, anxiety and depression impacting intake Typical Dietary Intake: 910 B: ham, egg and cheese sandwich from [employer]; large sepideh donuts coffee - 8 cream, 8 sugar L: skipping lunch, occasionally - pasta salad 5/5:30 D: tacos - meat, cheese Typical Beverages: 1x/day coffee; water; no soda recently; no alcohol Previous Wellness Goals: Goals ??? food choices/meal [...] ?? Follow up with sleep medicine at [facility] to resume treating sleep apnea Goal 7 hours of sleep nightly. ?? Recommend consistent sleep and wake times, avoid electronics within one hour of sleep time Interview: summer time always on the go, impacts meal choices and routine; might have impacted weight but no current weight today; was down to 4 cream and 4 sugar in coffee; trying to separate eating and drinking - meals are really dry needs to drink, 2 sips Barriers to Change: none identified at this time Nutrition Goals: (1) separate eating and drinking by 30 minutes (2) 3 meals a day routine (3) exercise daily Assessing Calorie Goals at this time No Monitor/Evaluate: Will follow up for additional consecutive monthly visits for a total of 3 RD visits OR as otherwise specified by patient's insurer. Patient will contact bariatric surgery team with any questions about insurance requirements ( ) Will discuss progress towards goals listed above Aim for 5-10% weight loss from ABW x 3-6 months from initial visit Thank you Tatiana Hernandes MS, RDN LD 30 minutes were spent in visit today, including contact with patient, chart review, and documentation documented in this encounter Plan of Treatment Not on filedocumented as of this encounter Goals Goal Patient Goal Associated Recent Patient-Stated? Author Type Problems Progress food Lifestyle No svetlana Watters/monae Vargas/ [employer] PROJECT MANAGER bariatric behaviors Note: Formatting of this note [...] original. Follow up with sleep medicine at [facility] t o resume treating sleep apnea [...] therabands Nutrition - 05/21/21 Lifestyle No Tatiana Weir, RD Note: Formatting of this note might [...] adult documented in this encounter Care Teams Graphic Pre Press Trades Worker Relationship Specialty Start Date End Date Isidro Weinstein MD PCP - General Family Medicine 04/25/[address] [place] [address] documented as of this encounter
--- OUTSIDE RECORDS SUMMARY | 2022-07-23 01:22 | XMS_ITS | Encounter Summary ---
:1980 [place] [address] Care Team Providers Name Role Phone Isidro Weinstein MD Primary Care Provider [phone] Encounter Details Date Type Department Care Team Description 03/13/2021 Notes [place] [phone] Social History Tobacco Use Types Packs/Day Years Used Date Never Smoker Alcohol Use Standard Drinks/Week Comments Yes 0 (1 standard drink = 0.6 oz pure alcoho l) Sex Assigned at Date Recorded Not on file documented as of this encounter Progress Notes Shaneka Blanca - 03/13/2021 2:00 PM EDTSummary: [place]- Bariatric Surgery Patient attended the Intro to Bariatric Surgery for the [facility] on 03/13/2021 documented in this encounter Plan of Treatment Not on filedocumented as of this encounter Visit Diagnoses Not on filedocumented in this encounter Care Teams Animal Care Taker Relationship Specialty Start Date End Date Isidro Weinstein MD PCP - General Family Medicine 04/25/[address] [place], [place] [address] documented as of this encounter
--- OUTSIDE RECORDS SUMMARY | 2022-07-23 01:22 | XMS_ITS | Encounter Summary ---
:1980 Author Organization [facility] [place] [address] Care Team Providers Name Role Phone Boris Espino MD Primary Care Provider Reason for Visit Reason Comments Follow Up Surgery s/p wisdom tooth extraction 12/08 Encounter Details Date Type Department Care Team Description 12/24/2011 Office Visit Maxillofacial Surgery NURSE, ORAL Caries (Primary Dx); at [facility] [place] [address] Social History Tobacco Use Types Packs/Day Years Used Date Never Smoker Sex Assigned at Date Recorded Not on file documented as of this encounter Last Filed Vital Signs Vital Sign Reading Time Taken Comments Blood Pressure 126/78 12/24/2011 1:25 PM EST Pulse 88 12/24/2011 1:25 PM EST Temperature - - Respiratory Rate - - Oxygen Saturation - - Inhaled Oxygen Concentration - - Weight - - Height - - Body Mass Index - - documented in this encounter Progress Notes Joce Boyd - 12/24/2011 1:27 PM EST Maxillofacial Post-op Nurse Visit Procedure: Extraction of teeth 1, 16, 17, and 32 Location: Operating Room Date:12/08/11 Jaki presents to the clinic for a follow up appointment after having 4 wisdom teeth extracted. Residual numbness: She states to have numbness and tingling of the lower right lip. Diet: Returned to normal The irrigation technique was visually and verbally reviewed with the patient. The irrigation syringewas given to the patient and instructed to use at least twice daily. Healing takes 4-6 weeks and the holes will slowly heal from the bottom up. Use the syringe until thetip no longer gets into the hole. Watch for sudden soreness, redness or swelling which could be signs of an infection from food entrapment. Call if any questions or concerns. documented in this encounter Plan of Treatment Not on filedocumented as of this encounter Visit Diagnoses Diagnosis Caries - Primary Unspecified dental caries Dental impaction Disturbances in tooth eruption documented in this encounter Care Teams Care Connector Relationship Specialty Start Date End Date Boris Espino MD PCP - General 07/23/11 07/21/14 [address] [place] [address] documented as of this encounter
--- OUTSIDE RECORDS SUMMARY | 2022-07-23 01:22 | XMS_ITS | Encounter Summary ---
:1980 Author Organization [facility] [place] [address] Care Team Providers Name Role Phone Boris Espino MD Primary Care Provider Encounter Details Date Type Department Care Team Description 12/09/2011 Telephone Maxillofacial Surgery at Micheal Wolff MD [facility] [address] [facility] [place] [address] SURGERY [phone] [place], [place] [address] (Wo rk) Social History Tobacco Use Types Packs/Day Years Used Date Never Smoker Sex Assigned at Date Recorded Not on file documented as of this encounter Miscellaneous Notes Telephone Encounter - Joce Boyd - 12/09/2011 1:19 PM EST Jaki called this morning regarding the pain medication given to her after her wisdom tooth extraction yesterday in the operating room. She was given a prescription for percocet, which is causing nausea and vomiting. A prescription for vicodin was called into the pharmacy for her. It was also recommended that she eat prior to taking the medication, and possibly begin with 1/2 tablet. She also statesthat she has numbness and tingling along the lower jaw-line and lips. She was instructed to call with any other questions or concerns. documented in this encounter Plan of Treatment Not on filedocumented as of this encounter Visit Diagnoses Not on filedocumented in this encounter Care Teams Piano Player Relationship Specialty Start Date End Date Boris Espino MD PCP - General 07/23/11 07/21/14 [address] [place] [address] documented as of this encounter
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
--- OUTSIDE RECORDS SUMMARY | 2022-07-23 01:22 | XMS_ITS | Encounter Summary ---
:1980 [place] [address] Care Team Providers Name Role Phone Boris Patel MD Primary Care Provider Reason for Visit Reason Comments Skin Check Encounter Details Date Type Department Care Team Description 10/20/2011 Office Visit Dermatology Earline Mane Folliculitis (Primary [facility] TMD Dx) [place] [address] [facility] [address] [place] [address] Social History Tobacco Use Types Packs/Day Years Used Date Never Smoker Sex Assigned at Date Recorded Not on file documented as of this encounter Progress Notes Earline Thorpe MD - 10/20/2011 8:02 AM EST DERMATOLOGY CONSULT NOTE Date of service: 10/20/2011 Jaki Mccarty : 1980 Provider: Earline Thorpe MD Chief Complaint Patient presents with ??? Skin Check The patient is seen at the request of BORIS PATEL MD, who instructed the patient to be seen forevaluation of above HPI Jaki Mccarty is a 30 y.o. year old female. She has had a pimple like rash under her bilateral axillae for several months, and a longer history of skin tags under the arms only, which are irritatedby shaving etc. She tells me she was given an oral antifungal for this, but it Also, more recently in the past week she had a larger boil like papule under the right axillae, which is resolving. SH: Non smoker ADR: Review of patient's allergies indicates no known allergies. MEDS: Current outpatient prescriptions ordered prior to encounter Medication Sig Dispense Refill ??? Levalbuterol Tartrate (XOPENEX HFA) 45 mcg/Actuation inhaler 2 Puff(s), Inh, Q4H,PRN ??? albuterol (PROVENTIL HFA;VENTOLIN HFA) 90 mcg/Actuation inhaler ??? OXYcodone-acetaminophen (PERCOCET) 5-325 mg per tablet 1-2 Tablet(s), PO, Q4-6H ROS General: feeling well Skin: denies other skin complaints EXAM General: NAD, pleasant, cooperative Skin: A total body skin exam except for areas covered by underwear was performed. This includes examination of the skin of the face, ears, neck, chest, axillae, left and right upper and lower extremities, hands and feet, abdomen, and except the areas covered by underwear were not examined. Significant skin findings: A. Scattered, erythematous 0.1-0.2cm follicle-centered papules and pustules in the bilateral axilla B. Multiple 0.2-0.4cm, sessile, flesh-colored papules in the bilateral axilla ASSESSMENT/PLAN: A. Folliculitis. No evidence of hidradenitis on exam today, although history of boil may be suggestive of early HS. She has only had one such lesion to date. RX:Clindaymycin 1% lotion bid for 6 weeks. Once weekly antibacterial soap once a week all over. Discard razor for shaving. B. Skin Tags Procedure(s): Destruction of lesion(s) with cryotherapy. Number: 10 Location: as above Discussed procedure and expectations including risks (including risk of hypopigmentation) and benefits. Verbal consent obtained. Frozen with LN2, 15-30 second thaw time, TWICE. There were no complications; the patient tolerated the procedure well. Post-procedure expectations and wound care were reviewed. C. Will call in 6-8 weeks if axillary folliculitis has not improved Note initiated by: VINNY ORDOÑEZ LPN Routed to physician for review and changes: Earline Thorpe MD Production Material Coordinator of Dermatology Department of Surgery [facility] cc: BORIS PATEL MD documented in this encounter Plan of Treatment Not on filedocumented as of this encounter Visit Diagnoses Diagnosis Folliculitis - Primary Other specified disease of hair and hair follicles documented in this encounter Care Teams Collar Stitcher Relationship Specialty Start Date End Date Boris Patel MD PCP - General 07/23/11 07/21/14 [address] [place] [address] documented as of this encounter
--- OUTSIDE RECORDS SUMMARY | 2022-07-23 01:23 | XMS_ITS | Encounter Summary ---
:1980 Author Organization [facility] Address [address] [place] [address] Care Team Providers Name Role Phone Isidro Weinstein MD Primary Care Provider [phone] Reason for Referral Radiology Services (Routine) - Closed Specialty Diagnoses / Procedures Referred By Contact Refer red To Contact Diagnoses Low back pain, unspecified back pain laterality, unspecified chronicity, with sciatica presence unspecified Leonila Mendoza PA-C Procedures L SPINE 4 OR MORE VIEWS [address] [facility] [place] [address] Referral ID Status Reason Start Date Expiration Date Visits Requ ested Visits Authorized [id number] Closed 01/17/2019 1 1 Encounter Details Date Type Department Care Team Description 01/29/2019 Orders Only [facility] Leonila Mendoza Low back pain, Spine Program - [place], PA-Amor unspecified back pain Sudha [address] [facility] laterality, [address] [facility] Sp[facility] chronicity, with [address] [place], [place] sciatica presence [phone] [phone] unspecified (Primary [phone] (Wo rk) Dx) Social History Tobacco Use Types Packs/Day Years Used Date Never Smoker Smokeless Tobacco: Never Used Alcohol Use Standard Drinks/Week Comments No 0 (1 standard drink = 0.6 oz pure alcoho l) Alcohol Habits Answer Date Recorded How often do you have a drink containing alcohol? Never 01/29/2019 How many drinks containing alcohol do you have on a typical Not asked day when you are drinking? How often do you have six or more drinks on one occasion? No t asked Comment: Not asked Sex Assigned at Date Recorded Not on file documented as of this encounter Plan of Treatment Not on filedocumented as of this encounter Procedures Procedure Name Priority Date/Time Associated Diagnosis Comme nts L SPINE 4 OR MORE Routine 01/29/2019 10:17 Low back pain, Resu lts for this VIEWS EDT unspecified back procedure a re in pain laterality, the results unspecified section. chronicity, with sciatica presence unspecified documented in this encounter Results L SPINE 4 OR MORE VIEWS (01/29/2019 10:17 EDT) Anatomical Region Laterality Modality Other Specimen Narrative [facility] JEREMY GARBER - 01/30/2019 9:44 EDT L SPINE 4 OR MORE VIEWS ??01/29/2019 10:17 AM Clinical History/Comments: M54.5-Low back pain-ICD-10; Low back tracy n. Technique: 4 views of the lumbar spine Comparison: Lumbar radiographs December 07, 2016. Findings: Normal alignment on the AP view. Minimal retrolisthesis of L5 on S1 on the lateral view. No evidence of henry jennifer instability on flexion-extension views. Normal vertebra l body heights and disc heights. Procedure Note Boris Wen MD - 01/30/2019 L SPINE 4 OR MORE VIEWS 01/29/2019 10:17 AM Clinical History/Comments: M54.5-Low back pain-ICD-10; Low back tracy n. Technique: 4 views of the lumbar spine Comparison: Lumbar radiographs December 07, 2016. Findings: Normal alignment on the AP view. Minimal retrolisthesis of L5 on S1 on the lateral view. No evidence of henry jennifer instability on flexion-extension views. Normal vertebra l body heights and disc heights. Performing Organization Address City/State/ZIP Code Phon e Number [facility] [place] documented in this encounter Visit Diagnoses Diagnosis Low back pain, unspecified back pain lat erality, unspecified chronicity, with sciatica presence unspecified - Primary documented in this encounter Care Teams Moss Gatherer Relationship Specialty Start Date End Date Isidro Weinstein MD PCP - General 01/01/[address] [place] [address] documented as of this encounter
--- OUTSIDE RECORDS SUMMARY | 2022-07-23 01:23 | XMS_ITS | Encounter Summary ---
:1980 Author Organization [facility] Address [address] [place] [address] Care Team Providers Name Role Phone Isidro Weinstein MD Primary Care Provider [phone] Encounter Details Date Type Department Care Team Description 01/25/2019 Results Only Imaging [facility]- Unknown, SCOTT ProviderMD [phone] Social History Tobacco Use Types Packs/Day Years Used Date Never Assessed Alcohol Habits Answer Date Recorded How often [...] as of this encounter Plan of Treatment Pending Results Name Type Priority Associated Diagnoses Date/Ti me OUTSIDE IMAGES - OTHER Imaging 01/25 9:05 EDT NEURO documented as of this encounter Visit Diagnoses Not on filedocumented in this encounter Care Teams Fence Setter Relationship Specialty Start Date End Date Isidro Weinstein MD PCP - General 01/01/[address] [place] [address] documented as of this encounter
--- OUTSIDE RECORDS SUMMARY | 2022-07-23 01:23 | XMS_ITS | Encounter Summary ---
:1980 Author Organization [facility] Address [address] [place] [address] Care Team Providers Name Role Phone Isidro Weinstein MD Primary Care Provider [phone] Reason for Referral Referral (Routine/Next Available) - Closed Specialty Diagnoses / Procedures Referred By Contact Refer red To Contact Pain Medicine Diagnoses Chronic bilateral low back pain without sciatica Leonila [facility] [address] [place] [address] Spine [place] [address] [place], [place] Fax: [phone] Referral ID Status Reason Start Date Expiration Date Visits V isits Requested Authorized [id number] Closed Specialty 01/29/2019 1 1 Services Required Question Answer Reason for Request: Bilateral lumbar facet injec tions at L4-L5 and L5-S1 Has the patient had 6 weeks of conservative Yes treatment such as physicial therapy or NSAIDS? Associated Notes: See PRISM Reason for Visit Reason Comments Back Pain Low back Consult (Routine) - Authorization Not Required Specialty Diagnoses / Procedures Referred By Contact Refer red To Contact Orthopedic Surgery Diagnoses Back pain Isidro Weinstein [facility] MD [address] Sudha Ng [address] [address] Phone: Fax: Referral ID Status Reason Start Expiration Visits Visits Date Date Requested Authorized [id number] Authorization Not 1 1 Required Encounter Details Date Type Department Care Team Description 01/29/2019 Office Visit [facility] Leonila Mendoza [facility] onic bilateral low Spine Program - A, PEYTON-C back pain without Sudha 192 Sudha Sanz sciatica (Primary Dx) 192 Sudha Ng Spine [facility] [id number] [place] [address], [place] [phone] (Wo rk) Social History Tobacco Use Types Packs/Day Years Used Date Never Smoker Smokeless Tobacco: Never Used Tobacco Cessation: Counseling Given: No Alcohol Use Standard Drinks/Week Comments No 0 [...] Sign Reading Time Taken Comments Blood Pressure - - Pulse - - Temperature - - Respiratory Rate - - Oxygen Saturation - - Inhaled Oxygen Concentration - - Weight 145.2 kg (320 lb) 01/29/2019 1020 EDT patient re ports Height 157.5 cm (5' 2) 01/29/2019 1020 EDT patient rep orted Body Mass Index 58.53 01/29/2019 1020 EDT documented in this encounter Discharge Diagnoses Diagnosis M43.17 Spondylolisthesis, lumbosacral re gion-M43.17[ICD-10-CM] documented in this encounter Discharge Disposition Disposition Code Departure Means Destination Auto Discharge documented in this encounter Progress Notes Leonila Quezada PA - 01/29/2019 1000 EDT Jaki Cardoso is being seen as a consultation from Dr. Weinstein. Chief Complaint Patient presents with ??? Back Pain Low back The encounter diagnosis was Chronic bilateral low back pain without sciatica. SUBJECTIVE: HPI 38-year-old obese female with PMH of T2DM (per pt, last A1c normal, value unknown), here today with 100% axial back pain, LBP > thoracic and cervical x 5 years. Patient states LBP began roughly 5 years ago after the of her daughter. She states she received 5-6 epidurals during labor which she thinks is related. She states over the last 6 months pain is been traveling upper thoracic and cervical spine and she has been experiencing increased frequency of headaches. No leg or arm symptoms. No balance problems. No weakness. Endorses decreased walking endurance to less than 1 [address]. Sitting sometimes provides relief. In general, symptoms are relatively constant and worsening. Pain described as shooting up the back. Alleviating positions: frequently changing positions, sometimes sittingsometimes standing, bending forward, bending backwards. Aggravating positions: Lying down, walking, exercise, lifting, pulling, pushing, Valsalva. Denies bowel or bladder dysfunction. Denies numbness. Pain today 8/10, worst is 10/10. Conservative treatment: Physical therapy: 2 courses, 2017 4-6 wks, with no relief. Patient states physical therapist made her uncomfortable. August/September 2018 x 6 weeks with no relief. Ice and heat: Minimal temporary relief. IBU/APAP minimal temporary relief. TENS unit: Trialed once with no notic eable relief. Injections: None. Social history: Non-smoker. Not currently working due to anxiety, depression and back pain. Currently applying for disability. This is not workman's comp. There is no problem list on file for this patient. History reviewed. No pertinent past medical history. History reviewed. No pertinent surgical history. Social History Tobacco Use ??? Smoking status: Never Smoker ??? Smokeless tobacco: Never Used Substance Use Topics ??? Alcohol use: No Frequency: Never No family history on file. Current Outpatient Medications Medication Sig Dispense Refill ??? dextroamphetamine-amphetamine (ADDERALL) 20 mg tablet Take 20 mg by mouth daily. ??? levothyroxine (SYNTHROID) 100 mcg tablet Take 100 mcg by mouth daily. ??? metFORMIN (GLUCOPHAGE) 500 mg tablet Take 500 mg by mouth daily. ??? no122/iron/folic acid ( MULTI ORAL) Take 1 tablet by mouth daily. No current facility-administered medications for this visit. No Known Allergies Review of Systems Constitutional: Negative for fatigue. Eyes: Negative for visual disturbance. Respiratory: Negative for shortness of breath. Cardiovascular: Negative for chest pain. Gastrointestinal: Positive for constipation. Genitourinary: Negative for difficulty urinating. Musculoskeletal: Positive for back pain. Skin: Negative for rash. Neurological: Positive for headaches. Negative for weakness and numbness. Psychiatric/Behavioral: Positive for dysphoric mood. The patient is nervous/anxious. Physical Exam Constitutional: She is oriented to person, place, and time. She appears well-developed. Eyes: EOM are normal. Cardiovascular: Normal rate. Pulmonary/Chest: Effort normal. Musculoskeletal: She exhibits no tenderness. Neurological: She is alert and oriented to person, place, and time. Skin: Skin is dry. Psychiatric: She has a normal mood and affect. Ortho Exam Neurologic Exam Mental Status Oriented to person, place, and time. Cranial Nerves CN III, IV, Extraocular motions are normal. OBJECTIVE: Gait: Antalgic. Patient can heel and toe walk difficulty. No spine or paraspinal tenderness. Truncalflexion with fingertips to mid thigh. Truncal extension: 10 degrees. Pain elicited with flexion> extension. Strength: 5/5 with IP, quads, hamstrings, TA, EHL, peroneals, gastrocnemius bilaterally. Sensation to light touch intact throughout lower extremity's bilaterally. Patellar: Absent bilaterally. Achilles: 1+ on the right, absent on the left. Ankle clonus: Negative. Palak's: Negative. Posterior tibialis: +1 bilaterally. SLR: Negative bilaterally. Shaneka's: 1/5. Hip range of motion: Full and painless. Imaging: Today, 01/29/2019, I ordered plain radiograph and independently reviewed the following: Lumbar plain radiograph, AP/LAT/flex/ex, 01/29/2019: Mild loss of disc at L5-S1, consistent with degenerative disc disease. Mild facet arthropathy of the lumbar spine. Grade 1 retrolisthesis of L5 on V6mkunk appears unchanged in flex X ex. ASSESSMENT: 38-year-old obese female with PMH of T2DM (pt states last A1c was normal, unknown value) here today with chronic axial back pain, LBP > thoracic and cervical, which is likely secondary to musculoskeletal etiology and deconditioning. Lumbar plain films demonstrate degenerative changes as noted above. We discussed multiple treatment options including physical therapy, medical management, injection therapy, surgical consultation. At this point, Jaki would like to trial bilateral lumbar facet injections as she has been relatively refractory to 2 courses of physical therapy over the last 2 years. Add itionally, she is interested in a TENS unit. She will proceed with the plan below. PLAN: 1. Schedule bilateral lumbar facet injections at L4-L5 and L5-S1. Phone follow- up with me 3 weeks later. 2. If good relief, consider MBB and RFA. If no relief, consider pain service consult. 3. Continue weight loss efforts and HEP. 4. Ibuprofen, APAP, heat, ice, TENS as needed. 5. Activities as tolerated. Dr. Santiago was available for consultation, however consult was not required. All or part of this document has been prepared with speech recognition software and/or keyboard dataentry techniques. Minor irregularities may be present. Other Orders Placed This Visit Procedures ??? Amb Pain Procedure documented in this encounter Plan of Treatment Scheduled Referrals Name Type Priority Associated Diagnoses Order S chedule AMB PAIN PROCEDURE Outpatient Referral Routine Chronic Bilater al Ordered: Low Back Pain 01/29/2019 Without Sciatica documented as of this encounter Visit Diagnoses Diagnosis Chronic bilateral low back pain without sciatica - Primary documented in this encounter Historical Medications This list may reflect changes made after this encounter. Medication Sig Dispensed Refills Start Date End Date no122/iron/folic Take 1 tablet by 0 acid ( MULTI ORAL) mouth daily. dextroamphetamine-amphetami Take 20 mg by mouth 0 ne (ADDERALL) 20 mg tablet daily. levothyroxine (SYNTHROID) Take 100 mcg by 0 100 mcg tablet mouth daily. metFORMIN (GLUCOPHAGE) 500 Take 500 mg by mouth 0 mg tablet daily. added in this encounter Care Teams Coffee Farmer Relationship Specialty Start Date End Date Isidro Weinstein MD PCP - General 01/01/[address] [place] [address] documented as of this encounter
--- OUTSIDE RECORDS SUMMARY | 2022-07-23 01:23 | XMS_ITS | Encounter Summary ---
:1980 Author Organization [facility] Address [address] [place] [address] Care Team Providers Name Role Phone Unknown, Provider MD Primary Care Provider Encounter Details Date Type Department Care Team Description 07/12/2017 Results Only [facility]- [facility] Yanci Anne MD [phone] [address] [place] [address] Social History Tobacco Use Types Packs/Day Years [...] Name Priority Date/Time Associated Diagnosis Comme nts PAP TEST- RESULT Routine 07/12/2017 0:00 EDT Resu lts for this ONLY procedure are i n the results section. documented in this encounter Results PAP TEST- RESULT ONLY (07/12/2017 0:00 EDT) Pathology Report: CYTOPATHOLOGY REPORT [facility] Reports generated via electronic interface contain nicanor ginal data; SERVICES however they are lacking the format of the original re port. Caution should be taken when reading/interpreting unfo rmatted reports. Name: ? ASHLEY MARTIN ? Accession #: ? [id number] ? : ? 1980 (Age: 36) ??F ?Collect Date: ? 2016 ? Location: ? [facility] ? Receive Date: ? 7 ? Provider: YANCI ANNE MD Copy to: MARCELINO BAPTISTE MD ? Final Report SPECIMEN ADEQUACY ? Satisfactory for Evaluation - transformation zone component present GENERAL CATEGORIZATION ? Negative for Intraepithelial Lesion or Malignan cy ?? Last Menstrual Period: 06/16/17 Infection History: Neg for HPV: last pap Other: Previous NIL Pap(s): 2013;low risk pap HX Specimen/Source: ??Pap Test, Cervix, ThinPrep Imaging System with manual evaluation Document reviewed and electronically signed by: ? Alexsander Lee, CT(ASCP) ? Report ??Date: 07/22/2017 15:57 HPV with Pap Test ? Date Ordered: ? 07/21/2017 ? Status: ?? Signed Out ?Date Complete: ? 07/25/2017 ? By: ??Sy stem Interface ? Date Reported: ? 07/25/2017 ? Interpretation RESULT: Negative for HPV. No E6 or E7 mRNA is detected from HPV types 16,18,31,3 3,35, 39,45,51,52,56,58,59,66, and 68 by hydraulic plumber media ronda amplification. Comments Document reviewed and electronically signed by: ? System Interface ? Report date: 07/25/2017 By the signature above, the attending physician certif ies that he/she has personally conducted a gross and/or microscopic examin ation of the described specimens and rendered or confirmed the above diagnosi s. End of Report Specimen Performing Organization Address City/State/ZIP Code Phon e Number [facility] [address] [place] [address] SERVICES documented in this encounter Visit Diagnoses Not on filedocumented in this encounter Care Teams General House Worker Relationship Specialty Start Date End Date Unknown, Provider, PCP - General 03/05/14 12/31/18 documented as of this encounter
--- OUTSIDE RECORDS SUMMARY | 2022-07-23 01:23 | XMS_ITS | Clinical Summary ---
:1980 Author Organization [facility] Address [address] [place] [address] Care Team Providers Name Role Phone Isidro Weinstein MD Primary Care Provider [phone] Allergies No known active allergies Medications Medication Sig Dispensed Refills Start Date End Date Status metFORMIN (GLUCOPHAGE) Take 500 mg by 0 Active 500 mg tablet mouth daily. levothyroxine Take 100 mcg by 0 Active (SYNTHROID) 100 mcg mouth daily. tablet dextroamphetamine-amphet Take 20 mg by 0 Active amine (ADDERALL) 20 mg mouth daily. tablet Take 1 tablet by 0 Act jeremie no122/iron/folic acid mouth daily. ( MULTI ORAL) Active Problems No known active problems Social History Tobacco Use Types Packs/Day Years [...] Body Mass Index 58.53 01/29/2019 1020 EDT Plan of Treatment Not on file Insurance Payer Benefit Plan Subscriber ID Effective Phone Address Typ e / Group Dates MEDICAID ACO MEDICAID ACO [id number] 2021-Pres [phone] [address] [place] [address] [place], [facility] [id number] Care Teams Food Service Cashier Relationship Specialty Start Date End Date Isidro Weinstein MD PCP - General 01/01/[address] [place], [place] [address]
--- OUTSIDE RECORDS SUMMARY | 2022-07-23 01:23 | XMS_ITS | Encounter Summary ---
:1980 Author Organization [facility] Address [address] [place] [address] Care Team Providers Name Role Phone Unknown, Provider Primary Care Provider Encounter Details Date Type Department Care Team Description 03/04/2014 Results Only [facility] Yanci Anne MD [phone] [address] [place] [address] Social History Tobacco Use Types Packs/Day Years [...] Diagnosis Comme nts PAP TEST- RESULT Routine 03/04/2014 0:00 EDT Resu lts for this ONLY procedure are i n the results section. documented in this encounter Results PAP TEST- RESULT ONLY (03/04/2014 0:00 EDT) Pathology Report: CYTOPATHOLOGY REPORT [facility] Reports generated via electronic interface contain nicanor ginal data; however they are lacking the format of the original re port. Caution should be taken when reading/interpreting unfo rmatted reports. Name: ? ASHLEY VALDOVINOS ? Accession #: ? [id number] ? : ? 1980 (Age: 33) ??F ?Collect Da te: ? 03/04/2014 ? Location: ? [facility] ? Receive Date: ? 014 ? Provider: YANCI ANNE MD Copy to: MEI GREEN TRANSFER CAR OPERATOR ? Final Report SPECIMEN ADEQUACY ? Satisfactory for Evaluation - transformation zone component present GENERAL CATEGORIZATION ? Negative for Intraepithelial Lesion or Malignan cy ?? Other: Additional clinical information: NEG PAP HX Specimen/Source: ??Pap Test, Cervix/Endocervix, ThinPr ep Imaging System with manual evaluation Document reviewed and electronically signed by: ? JACI Lott(ASCP) ? Report ??Date: 03/13/2014 09:49 HPV with Pap Test ? Date Ordered: ? 03/13/2014 ? Status: ?? Signed Out ?Date Complete: ? 03/15/2014 ? By: ??S ystem Interface ? Date Reported: ? 03/15/2014 ? Interpretation RESULT: Negative for HPV. No E6 or E7 mRNA is detected from HPV types 16,18,31,3 3,35, 39,45,51,52,56,58,59,66, and 68 by fusing machine feeder media ronda amplification. Comments Document reviewed and electronically signed by: ? System Interface ? Report date: 03/15/2014 By the signature above, the attending physician certif ies that he/she has personally conducted a gross and/or microscopic examin ation of the described specimens and rendered or confirmed the above diagnosi s. End of Report Specimen Performing Organization Address City/State/ZIP Code Phon e Number [facility] [address] [place] [phone] SERVICES [facility] [address] [place] [address] documented in this encounter Visit Diagnoses Not on filedocumented in this encounter Care Teams Relay Shop Tester Relationship Specialty Start Date End Date Unknown, Provider, PCP - General 03/05/14 12/31/18 documented as of this encounter
[2022-07-23 13:04] LABS: Magnesium 1.7 mg/dL (1.8-2.4); TSH (W/Ref FT4) 2.86 uIU/mL (0.36-3.74); Vitamin B12 408 pg/mL (193-986)
== END 2022-07-23 01:19 | disposition home or self-care (01) ==
LOC: LOS 01:18
PROVIDERS: PCP Family Medicine; Visit Provider Family Medicine
DX: D64.9 Anemia, unspecified (principal); E03.9 Hypothyroidism, unspecified; E83.42 Hypomagnesemia
CPT/HCPCS: 36415; 82607; 83735; 84443

== ENCOUNTER 2023-07-13 08:38 | Outpatient (CLI) | payer MEDICAID, SELFPAY ==
[2023-07-13 12:41] LABS: TSH (W/Ref FT4) 2.73 uIU/mL (0.36-3.74)
== END 2023-07-13 08:39 | disposition home or self-care (01) ==
LOC: LOS 08:38
PROVIDERS: PCP Family Medicine; Referring Provider Family Medicine; Visit Provider Family Medicine
DX: E03.9 Hypothyroidism, unspecified (principal)
CPT/HCPCS: 36415; 84443

== ENCOUNTER 2024-12-17 03:03 | Outpatient (CLI) | payer MEDICAID, SELFPAY ==
[2024-12-17 09:14] LABS: Abs Immature Grans 0.02 10^3/uL (0.0-0.06); Absolute Basophil Count 0.03 10^3/uL (0.0-0.2); Absolute Eosinophil Count 0.22 10^3/uL (0.0-0.7); Absolute Lymphocyte Count 1.78 10^3/uL (1.2-3.4); Absolute Monocyte Count 0.39 10^3/uL (0.1-0.8); Absolute Neutrophil Count 3.01 10^3/uL (1.2-6.7); Basophils % 0.6 %; HCT 35.3 % (36.0-46.0); HGB 10.3 g/dL (11.2-15.7); Immature Grans % 0.4 %; Lymphocytes % 32.7 %; MCH 22.7 pg (27.0-33.0); MCHC 29.2 % (32.0-36.0); MCV 78 fL (80-95); MPV 9.8 fL (8.0-11.0); Monocytes % 7.2 %; Neutrophils % 55.1 %; Platelet Count 269 10^3/uL (130-400); RBC 4.54 10^6/uL (3.93-5.22); RDW 15.6 % (11.7-14.6); RDW-SD 43.9 fL; WBC 5.45 10^3/uL (4.4-10.8)
[2024-12-17 09:33] LABS: Hemoglobin A1C 7.2 % (<5.7)
[2024-12-17 09:47] LABS: ALT 37 U/L (14-59); AST 25 U/L (15-37); Alkaline Phosphatase 95 U/L (46-116); Anion Gap 8.2 mmol/L (3-11); BUN 10 mg/dL (7-18); CO2 27.8 mmol/L (21.0-32.0); CREATININE 0.8 mg/dL (0.55-1.02); Calcium 8.4 mg/dL (8.5-10.1); Calculated LDL 113 mg/dL (<100); Chloride 106 mmol/L (98-107); Cholesterol 165 mg/dL (<200); Estimated GFR 92.54 (mL/min/1.73m2); Glucose 149 mg/dL (74-106); HDL Cholesterol 36 mg/dL (40-60); Potassium 3.7 mmol/L (3.5-5.1); Sodium 142 mmol/L (136-145); Total Protein 7.7 g/dL (6.4-8.2); Triglyceride 83 mg/dL (<150)
[2024-12-19 10:40] LABS: Ferritin 30 ng/mL (8-252); TSH 2.51 uIU/mL (0.36-3.74)
== END 2024-12-17 03:04 | disposition home or self-care (01) ==
LOC: LBO 03:03
PROVIDERS: Family Medicine; PCP Family Medicine; Visit Provider Internal Medicine Gastroenterology
DX: D50.9 Iron deficiency anemia, unspecified (principal); E03.9 Hypothyroidism, unspecified; Z11.59 Encounter for screening for other viral diseases; Z00.00 Encounter for general adult medical examination without abnormal findings; E66.813 Obesity, class 3; Z68.43 Body mass index [BMI] 50.0-59.9, adult; E66.01 Morbid (severe) obesity due to excess calories; R79.89 Other specified abnormal findings of blood chemistry
CPT/HCPCS: 36415; 80053; 80061; 82728; 83036; 84443; 85025

== ENCOUNTER 2025-01-27 12:40 | Emergency (ER) | payer MEDICAID, SELFPAY ==
[2025-01-27 12:48] VITALS: BP 179/109; PULSE 94; RESP 16; TEMP 36.9; O2SAT 98
--- NOTE | 2025-01-27 13:00 | RT.EKG_ITS ---
APPROVED REPORT Exam: Resting ECG Reason for Exam: left shoulder pain Patient Location: E HR:85 bpm ECG Measurements Heart Rate 85 AXIS NH 167 P 47 QRSd 93 QRS 57 QT 393 T -3 QTc 467 Conclusion Sinus rhythm...normal P axis, V-rate 60- 99 Low voltage, precordial leads...precordial leads <1.0mV I have reviewed and interpreted ECG and agree with software generated interpretation.
[2025-01-27] MEDS: Acetaminophen 325 MG TAB 650 MG PO (13:23)
[2025-01-27] MEDS: Orphenadrine 60 MG/2 ML VIAL IM (13:24)
--- NOTE | 2025-01-27 13:45 | DI.RAD_ITS ---
Exam(s) XR SHOULDER LT COMPLETE 2+V EXAM: XR SHOULDER LT COMPLETE 2+V CLINICAL HISTORY: xr ready. TECHNIQUE: 2D digital imaging was performed. Three views. COMPARISON: No exams were available for comparison FINDINGS: BONES: No acute fracture is present. No bony destructive lesion is seen. There is spur at the latera l aspect of the acromion. There is a small spur at the greater tuberosity. JOINTS: No dislocation present. The AC joint is not widened. Glenohumeral joint is maintained. SOFT TISSUE: Normal. IMPRESSION: No acute abnormality. DATA REPOSITORY: RADIATION DOSE DELIVERED:
[2025-01-27] MEDS: MORPHine IR 15 MG TAB PO (14:53)
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
--- NOTE | 2025-01-27 15:36 | W.ED.FU ---
Date of service: 01/27/25 Time of Service: 15:36 Follow Up Plan: Charge nurse Kiersten came to me and discussed with me that unfortunately the prescription for morphine for the patient that was prescribed by Jessika Freeman did not get to the pharmacy yet the pharmacy is closing. Pharmacy stated that they have not received and will not be able to fill the medication yet. The prescription was for 4 tablets. I have placed a to go order for 4 morphine IR tablets on behalf of my colleague who has left the emergency department due to her shift ending.
[2025-01-27] MEDS: MORPHine IR 15 MG TAB, 4 TABS/BTL PO (15:39)
--- NOTE | 2025-01-27 15:39 | NUR.NOTE ---
Nursing Note: Received call from patient that [facility] did not receive Morphine order electronically. Chart audit shows transmitted to [facility] @ [id number], they checked again and did not receive and stated they are closing in 20 minutes anyways. Patient called back on cell phone and instructed to return here for dispensing medications, Dr. Choudhary wrote for a to go bottle for this patient who will return and retrieve.
--- NOTE | 2025-01-27 16:01 | DI.VRAD_ITS ---
PROCEDURE INFORMATION: Exam: XR Left Shoulder Exam date and time: 01/27/2025 2:09 PM Age: 44 years old Clinical indication: Pain; Shoulder; Left TECHNIQUE: Imaging protocol: Radiologic exam of the left shoulder. Views: 2 or more views. COMPARISON: CT CHEST/ABD/PEL W 05/21/2019 3:40 PM FINDINGS: Bones/joints: Mild Degenerative changes in the acromioclavicular joint and glenohumeral joint. Exostosis on the superior aspect of the acromion. There is no evidence of acute fracture.There is no evidence of malalignment or dislocation. Soft tissues: Normal. IMPRESSION: There is no evidence of acute fracture.There is no evidence of malalignment or dislocation. Dictated and Authenticated by: Randi Chacon MD. Orderin Lydia Rosen MD
== END 2025-01-27 15:05 | disposition home or self-care (01) ==
PROVIDERS: Emergency Provider Physician Assistant; PCP Family Medicine
DX: M75.32 Calcific tendinitis of left shoulder (principal); I10 Essential (primary) hypertension
CPT/HCPCS: 93005; 96372; 99284; J2360; 73030; 93010; 99283

== ENCOUNTER 2025-02-18 01:02 | Outpatient (CLI) | payer MEDICAID, SELFPAY ==
--- NOTE | 2025-02-18 08:32 | DI.MAMMO_ITS ---
Exam(s) MAMMO SCREENING EXAM: MAMMO SCREENING CLINICAL HISTORY: screening,z12.39. TECHNIQUE: Bilateral full field digital CC and MLO mammographic images were obtained with 3D tomosyn thesis and utilizing computer aided detection (CAD). COMPARISON: None. This is a baseline mammogram on this 44-year-old patient FINDINGS: Fibroglandular tissue pattern is predominately fatty No significant focal findings in the left breast. In the right breast there few small benign-appearing nodular densities which are probably benign intr amammary lymph nodes. The largest of these measures approximately 1.2 x 0.8 cm, located approximatel y 15 cm in from the nipple on the CC view, slightly lateral of center. There are no malignant-appear ing microcalcification groups is region or elsewhere in either breast. There is no significant architectural distortion nor skin thickening-retraction. IMPRESSION: 1. No radiographic evidence of malignancy in left breast. 2. Asymmetric densities/nodules in the right breast, measuring up to 12 x 8 mm. Probably represent b enign intramammary lymph nodes or small cysts. However, there are no previous for comparison and the refore spot compression view and ultrasound recommended. BI-RADS Category 0 - Incomplete: Need additional imaging evaluation Breast Density - Category A - Almost entirely fatty Breast density Category C or D implies that the patient has dense breast tissue. Dense breast tissue can make it harder to find cancer on a mammogram. Dense breast tissue is also associated with an incr eased risk of breast cancer. This information about the result of the mammogram report was provided to the patient to raise their awareness. Use this report when you speak with the patient about their risks for breast cancer, which includes their family history. At that time, you may recommend additional screening tests (Ultrasoun d or MRI) as these tests may add significant information. A negative radiographic report should not delay biopsy if a dominant or clinically suspicious mass is present. Up to ten percent of cancers are not identified on mammography. A negative report may reinforce clinical impression. Adenosis and dense breasts may obscure an underlying neoplasm. False positive reports average 6 to 10%. Patient will receive a letter notifying them of these results.
== END 2025-02-18 01:22 ==
LOC: DI 01:02
PROVIDERS: PCP Family Medicine; Visit Provider Family Medicine
DX: Z12.31 Encounter for screening mammogram for malignant neoplasm of breast (principal); E03.9 Hypothyroidism, unspecified
CPT/HCPCS: 77063; 77067

== ENCOUNTER 2025-02-25 01:57 | Outpatient (CLI) | payer MEDICAID, SELFPAY ==
--- NOTE | 2025-02-25 | DI.MAMMO_ITS ---
Exam(s) MG MAMMO SCREEN CALL BACK UNI US BREAST RT LIMITED EXAM: MG MAMMO SCREEN CALL BACK UNI and U/S breast RT limited CLINICAL HISTORY: Small benign-appearing nodular densities, largest 1.2 x 0.8 cm, Rt breast. TECHNIQUE: Craniocaudal and mediolateral oblique Full Field Digital Mammography views of the right b reast with Computer Aided Diagnosis followed by Tomosynthesis and limited right breast ultrasound. COMPARISON: Comparison is with the patient's baseline examination. FINDINGS: Mammography/Tomosynthesis: Masses/Architectural Distortion: The bilobed nodule in the upper outer quadrant of the right breast i s again visualized. It has somewhat ill-defined borders on the right craniocaudad additional view. Microcalcifictions: No suspicious pleomorphic-type are seen. Skin Thickening/Nipple Retraction: None. Limited right breast US: Echotexture: Normal appearance of the glandular tissue. Shadowing: There is a shadowing hypoechoic area at the 9 o'clock position of the right breast 19 cm f rom the nipple. This may correspond to the mammographic abnormality. It measures approximately 8 mm . Cyst: None. Solid lesions: Benign-appearing lymph node is seen in the axilla. It measures 1.3 x 0.5 x 0.5 cm. Ductal dilation: None. IMPRESSION: 1. Shadowing hypoechoic 8 mm area at the of the right breast 19 cm from the nipple. This may corresp ond to the mammographic abnormality which does show somewhat ill-defined borders. 2. Biopsy is recommended in this patient. 3. The findings were discussed with the patient and Annia Oviedo NP on on the date of the examinat ion. BI-RADS Category 4 - Suspicious Abnormality: Biopsy should be considered Breast Density - Category B - Scattered areas of fibroglandular density Breast density Category C or D implies that the patient has dense breast tissue. Dense breast tissue can make it harder to find cancer on a mammogram. Dense breast tissue is also associated with an incr eased risk of breast cancer. This information about the result of the mammogram report was provided to the patient to raise their awareness. Use this report when you speak with the patient about their risks for breast cancer, which includes their family history. At that time, you may recommend additional screening tests (Ultrasoun d or MRI) as these tests may add significant information. A negative radiographic report should not delay biopsy if a dominant or clinically suspicious mass is present. Up to ten percent of cancers are not identified on mammography. A negative report may reinforce clinical impression. Adenosis and dense breasts may obscure an underlying neoplasm. False positive reports average 6 to 10%. Patient will receive a letter notifying them of these results.
== END 2025-02-25 02:17 ==
LOC: DI 01:57
PROVIDERS: PCP Family Medicine; Visit Provider Family Medicine
DX: Z12.31 Encounter for screening mammogram for malignant neoplasm of breast (principal); N63.15 Unspecified lump in the right breast, overlapping quadrants
CPT/HCPCS: 76642; 77063; 77067

== ENCOUNTER 2025-03-19 19:49 | Outpatient (REF) | payer MEDICAID, SELFPAY ==
[2025-03-19 21:41] LABS: COMMENT (LAB VIEW ONLY) 43.24 mg/dL; Microalb ug/mg Crea 72.8 ug/mg Cr
== END 2025-03-19 19:50 | disposition home or self-care (01) ==
LOC: LBN 19:49
PROVIDERS: PCP Family Medicine; Visit Provider Family Medicine
DX: E11.9 Type 2 diabetes mellitus without complications (principal)
CPT/HCPCS: 82043; 82570